=== PATIENT | female | born 1960 | race Caucasian/White ===

== ENCOUNTER 2018-01-18 17:25 | Emergency (ER) | payer BC, SELFPAY ==
--- NOTE | 2018-01-18 17:42 | HMH.EDUTC ---
[facility] [place] Clinical Impression: URI (upper respiratory infection) Qualifiers: URI type: unspecified URI Qualified Code(s): J06.9 - Acute upper respiratory infection, unspecified Disposition: Home, Self-Care Condition on Discharge: Good Instructions: DI for Cough -- Adult, DI for Fever (Symptom) -- Adult, Sore Throat Additional Instructions: * Monitor Temp. Tylenol and/or Ibuprofen as needed. ER if fever is no less than 101 despite alternating Tylenol and Ibuprofen * Encourage fluids, water, Gatorade, powerade, pedialyte if /toddler/or child * Warm salt water gargles for throat irritation *Warm fluids *Sore throat lozenges *Sleep elevated *humidifier or vaporizer Lots of rest Increase fluids, water, Gatorade, powerade *Flonase 2 sprays each nostril daily but may take 2-3 days to notice improvement with it Follow up IMMEDIATELY for new or worsening of symptoms OR no noticeable improvement over the next 48-72 hours. 911 immediately for any life threatening symptoms such as chest pain or difficulty breathing Prescriptions: Azithromycin [Z-Huy 250mg Tab] 250 mg PO UD DOSE PK #6 tab Dextromethorphan Polistirex [Delsym] 10 ml PO Q12H PRN #350 manjit.er.12h PRN Reason: Cough Fluticasone Propionate [Flonase 50mcg nasal spray 16gm] 2 spr NS DAILY #1 bottle predniSONE [Prednisone 5mg Tab Dose-Pack] 5 mg PO UD DOSE PK #21 pack Referrals: Js Palomares MD [Primary Care Provider] - Time of Disposition: 17:56 Medical Decision Making - Medical Records Medical records reviewed: Yes: I reviewed the patient's medical records. - [place] Inquiry Pt receiving controlled substance: No Torey was queried for this patient: No Vital Signs: 01/18/18 17:46 Temperature 98.2 F Temperature Source Oral Pulse Rate [Right Brachial] 89 Respiratory Rate 20 Blood Pressure [Right Arm] 132/88 Blood Pressure Mean [Right Arm] 102 Blood Pressure Source [Right Arm] Automatic Cuff Blood Pressure Position [Right Arm] Sitting 02 Sat by Pulse Oximetry 96 Oxygen Delivery Method Room Air - Lab Data Lab results reviewed: Yes: I reviewed the patient's lab results. [facility] [place] - General Stated complaint: fever, chills, cough Time Seen by Provider: 01/18/18 17:42 - History of Present Illness Provider Complaint: Patient state that she has not been feeling well for over a week now State that she has been having nasal congestion cough, fever and sore throat State that she began to feel a little better on Sat then Saturday she began not feeling well again State that she feels like she has drainage down the back of her throat State that temp has been as high as 102.0 and she took over the counter medication and it did help to bring it down - Related Data Home Medications Medication Instructions Recorded Confirmed Ascorbic Acid [Vitamin C 500mg 1,000 mg PO DAILY 01/18/18 01/18/18 tablet] Calcium Carbonate [Calcium] 500 mg PO DAILY 01/18/18 01/18/18 Cholecalciferol (Vitamin D3) 10,000 unit PO DAILY 01/18/18 01/18/18 [Vitamin D3 10,000 Unit Tab] Fluoxetine HCl [Prozac] 40 mg PO DAILY 01/18/18 01/18/18 Multivitamin [Multi-Day Vitamins] 1 each PO DAILY 01/18/18 01/18/18 Omeprazole Magnesium [Prilosec Otc 20 mg PO DAILY 01/18/18 01/18/18 20mg Tab] Previous Rx's Medication Instructions Recorded Azithromycin [Z-Huy 250mg Tab] 250 mg PO UD DOSE PK #6 tab 01/18/18 Dextromethorphan Polistirex 10 ml PO Q12H PRN #350 manjit.er.12h 01/18/18 [Delsym] Fluticasone Propionate [Flonase 2 spr NS DAILY #1 bottle 01/18/18 50mcg nasal spray 16gm] predniSONE [Prednisone 5mg Tab 5 mg PO UD DOSE PK #21 pack 01/18/18 Dose-Pack] Allergies Allergy/AdvReac Type Severity Reaction Status Date / Time No Known Allergies Allergy Unverified 10/15/17 14:08 [facility] History I have reviewed the patient's past medical history: Yes ROS Obtained: Yes All systems reviewed & no additional complaints - Constitutional Constitutional: Repo
[2018-01-18 17:46] VITALS: BP 132/88; PULSE 89; RESP 20; TEMP 36.8; O2SAT 96; BMI 35.2
[2018-01-18 18:09] LABS: UTC Influenza A Antigen Negative (Negative); UTC Influenza B Antigen Negative (Negative)
[2018-01-18 18:24] VITALS: BP 130/78; PULSE 80; RESP 20; TEMP 36.8; O2SAT 96
== END 2018-01-18 18:25 | disposition home or self-care (01) ==
PROVIDERS: Emergency Provider Nurse Practitioner; Family Provider Family Medicine; PCP Family Medicine
DX: J06.9 Acute upper respiratory infection, unspecified (principal)
CPT/HCPCS: 87804; 99202

== ENCOUNTER → 2018-03-31 10:13 | Outpatient (CLI) | payer BC, SELFPAY ==
--- NOTE | 2018-03-31 10:15 | MM_ITS ---
MM Dig screening mamm BI w/CAD CAD Screening ORDERING PHYSICIAN : Js Palomares MD PATIENT AGE: 57 years GENDER: Female Routine screening no hormones no new complaints. Family history. Paternal aunt breast cancer in her 80s COMPARISON: Previous bilateral mammograms: February 2017, August 2015, July 17 TECHNIQUE: Standard CC and MLO images were obtained. R2 CAD reviewed. FINDINGS: Low-density breasts. No dominant mass nor suspicious calcifications in either breast. . No significant change since prior studies.. CAD computer review highlights no areas of concern either. RIGHT BREAST:No significant new findings. Follow up one year. LEFT BREAST:Small intramammary node at the margin of the MLO view is been present since 2013. Unchanged IMPRESSION: Stable bilateral mammogram. No new areas of concern. Follow-up one year recommended BI-RADS Category: 1 Negative RECOMMENDED FOLLOW-UP: 1YR - 1 YEAR FOLLOW-UP (A letter has been sent to the patient regarding results of the study.)
== END ==
PROVIDERS: Family Provider Family Medicine; PCP Family Medicine; Visit Provider Family Medicine
DX: Z12.31 Encounter for screening mammogram for malignant neoplasm of breast (principal)
CPT/HCPCS: 77067

== ENCOUNTER → 2018-12-24 07:48 | Outpatient (CLI) | payer BC, SELFPAY ==
--- NOTE | 2018-12-24 07:55 | US_ITS ---
US transvaginal HISTORY: Left lower quadrant pelvic pain ITS.REASON: PELVIC PAIN ORDERING PHYSICIAN: Js Palomares MD PATIENT AGE: 58 years Comparison: None FINDINGS: The uterus is 5 x 3 x 3.5 cm with a 5 mm combined endometrial thickness. No uterine mass is evident. Left ovary is 14 x 13 mm. Right ovary is 13 x 10 mm. There is a small amount fluid in the cul-de-sac. IMPRESSION: Small amount of cul-de-sac fluid otherwise negative pelvic ultrasound
== END ==
PROVIDERS: PCP Family Medicine; Visit Provider Family Medicine
DX: R10.2 Pelvic and perineal pain (principal)
CPT/HCPCS: 76830

== ENCOUNTER → 2019-05-05 08:05 | Outpatient (CLI) | payer BC, SELFPAY ==
--- NOTE | 2019-05-05 08:30 | MM_ITS ---
MM Dig screening mamm BI w/CAD CAD Screening COMPARISON: Digital mammograms with CAD 03/31/2018 and 03/01/2017 INDICATION: There is a history of breast cancer patient paternal aunt diagnosed in her 80s TECHNIQUE: Standard CC and MLO images were obtained. R2 CAD reviewed. FINDINGS: The breasts are composed primarily of fat with minimal scattered fiber glandular densities in each breast. There is a benign-appearing calcification just deep to the nipple the left breast. There is a stable tiny nodular density low in the axilla left breast likely a low-lying noted. There is no suspicious lesion and there are no suspicious microcalcifications. IMPRESSION: Fatty type breast parenchyma with no suspicious lesion seen BI-RADS Category: 2 Benign Finding(s) RECOMMENDED FOLLOW-UP: 1YR - 1 YEAR FOLLOW-UP (A letter has been sent to the patient regarding results of the study.)
== END ==
PROVIDERS: PCP Family Medicine; Visit Provider Family Medicine
DX: Z12.31 Encounter for screening mammogram for malignant neoplasm of breast (principal)
CPT/HCPCS: 77067

== ENCOUNTER → 2019-07-28 07:47 | Outpatient (CLI) | payer BC, SELFPAY ==
[2019-07-28 09:00] LABS: Anion Gap 9.2 mEq/L (5-15); Blood Urea Nitrogen 16 mg/dL (7-18); Carbon Dioxide 31 mmol/L (21.0-32.0); Chloride 106 mmol/L (98-107); Creatinine,Serum 0.66 mg/dL (0.55-1.02); Estimated Glomerular Filt Rate 92 ml/min (>60); GFR (African American) 111 ML/MIN (>60); Glucose 87 mg/dL (74-106); Potassium 4.2 mmoL/L (3.5-5.1); Sodium 142 mmol/L (136-145)
== END ==
PROVIDERS: Visit Provider Specialist
DX: Z01.818 Encounter for other preprocedural examination (principal)
CPT/HCPCS: 36415; 80048

== ENCOUNTER → 2020-05-20 10:57 | Outpatient (CLI) | payer BC, SELFPAY ==
--- NOTE | 2020-05-20 11:00 | MM_ITS ---
PROCEDURE: MM DIG SCREENING MAMM BI W/CAD DIGITAL BREAST TOMOSYNTHESIS INCLUDED Patient Age:59Y CLINICAL INDICATION: Routine screening mammogram. 59-year-old. No hormones. No new complaints;. Family history paternal aunt with breast cancer in her 80s COMPARISON: DIGITAL MAMMOGRAPHY SCREENING from 07/20/2009 DIGITAL MAMMOGRAPHY SCREENING from 12/14/2010 DIGITAL MAMMOGRAPHY SCREENING from 07/12/2014 [employer] LEFT UNILATERAL MAMMOGRAM from 07/21/2014 [facility] DIG MAMM-SCREEN RICARDO from 09/09/2015 [facility] DIG MAMM-SCREEN [facility]ARDO W/CAD from 03/01/2017 [facility] MM Dig screening mamm BI w/CAD from 03/31/2018 DIG MAMM-SCREEN RICARDO from 05/05/2019 TECHNIQUE: Standard CC and MLO images were obtained. R2 CAD reviewed. Bilateral digital breast tomosynthesis included. FINDINGS: Low-density breast with diffuse fatty replacement. CAD computer assisted review highlights no areas of concern. On visual inspection no new dominant or suspicious mass. No suspicious calcifications. No architectural distortion Left breast: No new areas of concern. Subtle scattered stable areas of density likely reflect fibroglandular tissue with no significant change since previous studies. Right breast: Stable appearance with no new areas of concern. Again a few tiny scattered areas of density noted but stable since previous studies. IMPRESSION: Stable with no new areas of concern either breast. Bilateral follow-up 1 year recommended BI-RAD Category: 2 Benign Finding(s) FOLLOW-UP: 1YR 1 Year Follow-up (A letter has been sent to the patient regarding results of the study.) Dictated by: Jordan Mcneill MD 05/24/2020 09:39 Electronically signed by Jordan Mcneill MD in [place] 05/24/2020 09:39
== END ==
PROVIDERS: PCP Family Medicine; Visit Provider Family Medicine
DX: Z12.31 Encounter for screening mammogram for malignant neoplasm of breast (principal)
CPT/HCPCS: 77063; 77067

== ENCOUNTER → 2021-05-04 08:13 | Outpatient (CLI) | payer OTHER, SELFPAY ==
--- NOTE | 2021-05-04 08:16 | US_ITS ---
PROCEDURE: US ABDOMEN LIMITED CLINICAL INDICATION: RUQ PAIN COMPARISON: No exams were available for comparison FINDINGS: PANCREAS: Pancreas is not well delineated due to overlying bowel gas. CT or MRI without and with contrast with pancreatic protocol may provide further evaluation if clinically desired. LIVER: No focal liver lesions demonstrated. Homogeneous echogenicity. No intrahepatic biliary ductal dilatation evident. There is appropriate direction of blood flow within a non dilated portal vein RIGHT KIDNEY: Unremarkable. Normal size and echogenicity. No hydronephrosis GALLBLADDER: No gallstones, gallbladder wall thickening, pericholecystic fluid, or biliary dilatation. IMPRESSION: Poor visualization of the pancreas otherwise negative right upper quadrant ultrasound Dictated by: Arnoldo Christianson MD 05/04/2021 12:28 Arnoldo Christianson MD in [place] 05/04/2021 12:28
== END ==
PROVIDERS: PCP Family Medicine; Visit Provider Family Medicine
DX: R10.11 Right upper quadrant pain (principal)
CPT/HCPCS: 76705

== ENCOUNTER → 2021-05-19 06:45 | Outpatient (CLI) | payer OTHER, SELFPAY ==
--- NOTE | 2021-05-19 06:52 | NM_ITS ---
PROCEDURE: NM HEPATOBILIARY W PHARM CLINICAL INDICATION: RUQ PAIN COMPARISON: No exams were available for comparison TECHNIQUE: DOSE: 4.98 mCi TC Choletec FINDINGS: Homogeneous activity is present within the hepatic parenchyma. Activity is present in the gallbladder by 35 minutes. Activity is present in the small bowel by 30 minutes. The gallbladder ejection fraction is calculated to be 96 percent. CCK-The patient did not report pain or other symptoms during CCK infusion. IMPRESSION: Unremarkable HIDA scan. Dictated by: Raegan Marrufo 05/19/2021 09:59 Raegan Marrufo in [place] 05/19/2021 09:59
== END ==
PROVIDERS: PCP Family Medicine; Visit Provider Family Medicine
DX: R10.11 Right upper quadrant pain (principal)
CPT/HCPCS: 78227; A9537

== ENCOUNTER → 2021-06-06 13:46 | Outpatient (CLI) | payer OTHER, SELFPAY ==
--- NOTE | 2021-06-06 13:49 | US_ITS ---
PROCEDURE: MM DIG MAMM BI DX W/CAD Digital Breast Tomosynthesis Included CLINICAL INDICATION: NEOPLASM OF UNCERTAIN BEHAVIOR OF LT BREAST Left breast nodule. History bilateral breast reduction COMPARISON: MG [facility] MM Dig screening mamm BI w/CAD from 03/31/2018 MG DIG MAMM-SCREEN RICARDO from 05/05/2019 MG MM DIG SCREENING MAMM BI W/CAD from 05/20/2020 US US BREAST RT COMPLETE from 06/06/2021 US US BREAST LT COMPLETE from 06/06/2021 TECHNIQUE: Standard CC and MLO images and 3D Tomosynthesis was obtained. R2 CAD reviewed. FINDINGS: Average fibroglandular tissue. Status post bilateral breast reduction. Right breast: Asymmetric density is present in the lower outer and central aspect of the right breast. A 3 mm nodular density is present in the central aspect of the right breast central 1/3. No malignant appearing microcalcifications. Right breast ultrasound: At 7 o'clock there is a mixed subcutaneous 8 mm nodule which hyperechoic with the isoechoic center and could be due to scarring/hematoma. Left breast: There is an area of asymmetric density in the lower outer aspect of the left breast. This shows some intermixed fat density and may be related to postsurgical changes. This corresponds to the patient's palpable abnormality. This area measures 15 x 7 mm.. There is also some architectural distortion in the central aspect of the left breast slightly lateral which may be due to postsurgical change. Left breast ultrasound: In the 4 o'clock region of the left breast there is a 1.2 x 0.8 x0.7 cm similar to the lesion on the right side with slight increased echogenicity peripherally and decreased echogenicity centrally and may be related to a scarring//hematoma. This corresponds to the palpable abnormality. There is some posterior acoustical shadowing IMPRESSION: Status post bilateral breast reduction with bilateral asymmetric densities consistent with postsurgical changes. Recommend six-month mammographic and sonographic follow-up to confirm stability. 3 mm nodule central right breast probably benign. BI-RAD Category: 3 Probably Benign Finding Short Term Follow-Up FOLLOW-UP: 6M 6 Month Follow-up (A letter has been sent to the patient regarding results of the study.) Dictated by: Arnoldo Christianson MD 06/13/2021 12:38 Arnoldo Christianson MD in [place] 06/13/2021 12:38
== END ==
PROVIDERS: PCP Family Medicine; Visit Provider Nurse Practitioner
DX: D48.62 Neoplasm of uncertain behavior of left breast (principal)
CPT/HCPCS: 76641; 77062; 77066; G0279

== ENCOUNTER → 2021-12-12 13:46 | Outpatient (CLI) | payer OTHER, SELFPAY ==
--- NOTE | 2021-12-12 | US_ITS ---
PROCEDURE INFORMATION: Exam: US Right Breast, Complete US Left Breast, Complete MG Bilateral Diagnostic Breast Tomosynthesis Exam date and time: 12/12/2021 2:00 PM Age: 61 years old Clinical indication: 6 month follow up 3 mm right central breast mass as well as asymmetry in the left breast seen on prior ultrasound TECHNIQUE: Imaging protocol: Complete ultrasound of all four quadrants of the Right breast and the retroareolar regions, including ultrasound of the axilla when performed. Complete ultrasound of all four quadrants of the Left breast and the retroareolar regions, including ultrasound of the axilla when performed. Bilateral Diagnostic tomosynthesis and 2D mammography including computer-aided detection (CAD) when performed. Unilateral or bilateral exam. COMPARISON: 1. MG MM DIG MAMM BI DX W/CAD 06/06/2021 1:55 PM 2. MG MM DIG SCREENING MAMM BI W/CAD 05/20/2020 11:02 AM FINDINGS: MAMMOGRAPHY: The breast tissue is composed of scattered areas of fibroglandular density. There is no stellate mass, architectural distortion or suspicious microcalcifications in either breast to suggest malignancy. Stable 0.3 cm mass in the middle third the right central breast only well seen in the craniocaudal projection. No skin thickening or axillary adenopathy. ULTRASOUND: Sonographic images of both breasts including the retroareolar regions, all 4 quadrants and the axilla do not demonstrate any solid masses. Minimal subcentimeter cystic change is present in the right 6 o'clock axis. Cursors were placed over normal fibroglandular structures in the right 7 o'clock axis 3 cm from the nipple. Sonographic images of the left 4 o'clock axis 8 cm from the nipple demonstrates a subcutaneous mixed echotexture somewhat border forming mass measuring 0.8 x 0.5 x 0.6 cm in dimension. The finding is most consistent with postoperative fat necrosis and is unchanged compared to prior ultrasound. No architectural distortion or acoustical shadowing. No skin thickening or axillary adenopathy. IMPRESSION: Stable central 0.3 cm mass compared to prior mammogram dated 06/06/2021. A six-month follow-up diagnostic right mammogram is recommended for continued close surveillance unless otherwise clinically indicated. ASSESSMENT: BI-RADS Category 3: Probably benign
== END ==
PROVIDERS: PCP Family Medicine; Visit Provider Family Medicine
DX: R92.8 Other abnormal and inconclusive findings on diagnostic imaging of breast (principal)
CPT/HCPCS: 76641; 77062; 77066; G0279

== ENCOUNTER → 2022-06-13 13:41 | Outpatient (CLI) | payer OTHER, SELFPAY ==
--- NOTE | 2022-06-13 13:42 | US_ITS ---
PROCEDURE INFORMATION: Exam: US Right Breast, Complete US Left Breast, Complete MG Right Diagnostic Breast Tomosynthesis Exam date and time: 06/13/2022 3:00 PM Age: 61 years old Clinical indication: Short-term radiographic followup; Right breast; central breast mass TECHNIQUE: Imaging protocol: Complete ultrasound of all four quadrants of the Right breast and the retroareolar regions, including ultrasound of the axilla when performed. Complete ultrasound of all four quadrants of the Left breast and the retroareolar regions, including ultrasound of the axilla when performed. Right Diagnostic tomosynthesis and 2D mammography including computer-aided detection (CAD) when performed. Unilateral or bilateral exam. COMPARISON: US BREAST RT COMPLETE 12/12/2021 2:36 PM FINDINGS: MAMMOGRAPHY: The breast tissue is composed of scattered areas of fibroglandular density. There is no stellate mass, architectural distortion or suspicious microcalcifications to suggest malignancy. Stable 0.3 cm mass in the middle third of the right central to slightly inferior breast better seen in the craniocaudal projection on routine and spot compression views. No skin thickening or axillary adenopathy. ULTRASOUND: Sonographic images of the right breast including the retroareolar region, all 4 quadrants, and the axilla demonstrates a 0.3 cm cyst in the 6 o'clock axis 5 cm from the nipple. Additional 0.4 cm cyst in the right 7 o'clock axis 3 cm from the nipple . Previously noted fat necrosis in the 4 o'clock axis 8 cm from the nipple has resolved IMPRESSION: Stable 0.3 cm right central breast mass compared to prior mammograms dating back to 06/06/2021. A six-month follow-up diagnostic bilateral mammogram is recommended for continued close surveillance as well as part of an annual screening schedule. ASSESSMENT: BI-RADS Category 3: Probably benign
== END ==
PROVIDERS: PCP Family Medicine; Visit Provider Nurse Practitioner
DX: R92.8 Other abnormal and inconclusive findings on diagnostic imaging of breast (principal)
CPT/HCPCS: 76641; 77061; 77065; G0279

== ENCOUNTER → 2022-10-25 08:07 | Outpatient (CLI) | payer OTHER, SELFPAY ==
[2022-10-25 09:02] LABS: Basophils # 0.1 K/mm3 (0-0.2); Basophils % 1.7 % (0.1-2.0); Eosinophils # 0.1 K/mm3 (0.0-0.4); Eosinophils % 2.4 % (0.1-12.0); Hematocrit 41.9 % (37.0-47.0); Hemoglobin 13.4 g/dL (12.2-16.2); Lymphocytes # 2.9 K/mm3 (0.7-4.5); Lymphocytes % 48.3 % (10-50); Mean Corpuscular HGB Conc 31.9 g/dL (31.8-35.4); Mean Corpuscular Hemoglobin 30.3 pg (27.0-31.2); Mean Corpuscular Volume 94.8 fl (81-99); Mean Platelet Volume 7.7 fl (7.4-10.4); Monocytes # 0.3 K/mm3 (0.1-1.0); Monocytes % 4.8 % (1.7-9.3); Neutrophils # 2.6 K/mm3 (1.8-7.8); Neutrophils % 42.8 % (37.0-80.0); Platelet Count 322 K/mm3 (142-424); Red Blood Count 4.42 M/mm3 (4.20-5.40); Red Cell Distribution Width 14.4 % (11.5-17.5)
[2022-10-25 09:18] LABS: Hemoglobin A1C 5.3 % (4.0-6.0)
[2022-10-25 09:58] LABS: Chloride 103 mmol/L (98-107); Potassium 3.7 mmoL/L (3.5-5.1); Sodium 140 mmol/L (136-145)
[2022-10-25 10:00] LABS: Alanine Aminotransferase 21 U/L (12-78); Aspartate Amino Transferase 34 U/L (14-36); Blood Urea Nitrogen 13 mg/dl (7-17); Estimated Glomerular Filt Rate 85 ml/min (>60); GFR (African American) 103 ML/MIN (>60)
[2022-10-25 10:01] LABS: Albumin Level 4.5 g/dl (3.5-5.0); Albumin/Globulin Ratio 1.7 (1.1-1.8); Alkaline Phosphatase 74 U/L (38-126); Anion Gap 10.7 mEq/L (5-15); Calcium 9.2 mg/dl (8.4-10.2); Carbon Dioxide 30 mmol/L (22.0-30.0); Chol/HDL Ratio 2.3 (1-3.5); Cholesterol 194 mg/dl (140-200); Globulin 2.6 g/dL (1.3-3.2); Glucose 85 mg/dl (74-100); HDL Cholesterol 86 mg/dl (40-60); Iron 111 ug/dL (37-170); Total Protein,Serum 7.1 g/dl (6.3-8.2); Triglycerides 85 mg/dl (30-150); VLDL Cholesterol 17 mg/dL (0-40)
[2022-10-25 10:12] LABS: Direct LDL Cholesterol 71.47 mg/dL (100-129)
[2022-10-25 10:15] LABS: Total Iron Binding Capacity 408 ug/dL (265-497)
[2022-10-25 10:19] LABS: 25-OH Vitamin D, Total 36.1 ng/mL (30-100)
[2022-10-25 10:22] LABS: Free T4 (Free Thyroxine) 0.98 ng/dl (0.78-2.19)
[2022-10-25 10:32] LABS: Thyroid Stimulating Hormone 3.59 uIU/mL (0.465-4.68)
[2022-10-25 10:36] LABS: Ferritin 11.9 ng/ml (11.1-264)
[2022-10-27 19:11] LABS: Vitamin B1 208.8 nmol/L (66.5-200.0)
[2022-10-29 00:05] LABS: Vitamin A 39.7 ug/dL (22.0-69.5); Vitamin E Alpha Tocopherol 11.5 mg/L (9.0-29.0); Vitamin E Gamma Tocopherol 0.9 mg/L (0.5-4.9)
[2022-10-30 12:18] LABS: Methylmalonic Acid 128 nmol/L (0-378)
== END ==
PROVIDERS: PCP Family Medicine; Visit Provider Physician Assistant
DX: Z90.3 Acquired absence of stomach [part of] (principal)
CPT/HCPCS: 36415; 80053; 80061; 82131; 82306; 82728; 83036; 83540; 83550; 84425; 84439; 84443; 84446; 84590; 85025

== ENCOUNTER → 2022-12-17 13:42 | Outpatient (CLI) | payer OTHER, SELFPAY ==
--- NOTE | 2022-12-17 13:42 | US_ITS ---
PROCEDURE INFORMATION: Exam: US Right Breast, Complete US Left Breast, Complete MG Bilateral Diagnostic Breast Tomosynthesis Exam date and time: 12/17/2022 1:58 PM Age: 62 years old Clinical indication: Due for annual screening mammogram. Short-term follow-up has been performed of the right breast dating back to 06/06/2021 to assess stability of a 0.3 cm central right breast mass. TECHNIQUE: Imaging protocol: Complete ultrasound of all four quadrants of the right breast and the retroareolar regions, including ultrasound of the axilla when performed. Complete ultrasound of all four quadrants of the left breast and the retroareolar regions, including ultrasound of the axilla when performed. Bilateral Diagnostic tomosynthesis and 2D mammography including computer-aided detection (CAD) when performed. Unilateral or bilateral exam. COMPARISON: 1. MG MM DIG MAMM DX UNILAT RT CAD 06/13/2022 2:06 PM 2. MG MM DIG MAMM BI DX W/CAD 12/12/2021 1:59 PM 3. MG MM DIG MAMM BI DX W/CAD 06/06/2021 1:55 PM 4. MG MM DIG SCREENING MAMM BI W/CAD 05/20/2020 11:02 AM FINDINGS: MAMMOGRAPHY: There are scattered areas of fibroglandular density. Unchanged 6 o'clock right middle 1/3 0.4 cm circumscribed mass without associated architectural distortion or suspicious calcifications. This is identified on the initial postoperative images from 06/06/2021 in may be on a postoperative basis No new mass, architectural distortion, or suspicious calcifications have developed to suggest malignancy. No axillary adenopathy. ULTRASOUND: Left: Hypoechoic shadowing superficial structure along the 4 o'clock axis 8 cm from the nipple measures about 1 x 0.5 x 0.5 cm compared with 0.9 x 0.6 x 0.5 cm on 12/12/2021. This is thought to reflect fat necrosis which demonstrates characteristic features/calcifications in this location on the mammogram. No suspicious solid or cystic mass is present. No architectural distortion or shadowing is present. No axillary adenopathy is present. Right: In the region of mammographic interest, approximately 6 o'clock right breast 5 cm from the nipple, there is a anechoic 0.3 x 0.5 x 0.2 cm horizontally oriented mostly circumscribed structure with features highly suggestive of a complicated cyst. No suspicious solid or cystic mass is present. No architectural distortion or shadowing is present. No axillary adenopathy is present. IMPRESSION: Suspected postoperative 4 mm cyst in the 6 o'clock right breast. No mammographic evidence of malignancy. Recommend annual screening mammography unless otherwise clinically indicated. ASSESSMENT: BI-RADS category 2: Benign
== END ==
PROVIDERS: PCP Family Medicine; Visit Provider Nurse Practitioner
DX: R92.8 Other abnormal and inconclusive findings on diagnostic imaging of breast (principal)
CPT/HCPCS: 76641; 77062; 77066; G0279

== ENCOUNTER → 2023-01-30 23:27 | Outpatient (CLI) | payer OTHER, SELFPAY ==
[2023-01-30 18:45] LABS: Basophils % 0.8 % (0.1-2.0); Eosinophils # 0.1 K/mm3 (0.0-0.4); Hematocrit 41.9 % (37.0-47.0); Hemoglobin 13.2 g/dL (12.2-16.2); Lymphocytes # 1.9 K/mm3 (0.7-4.5); Lymphocytes % 38.9 % (10-50); Mean Corpuscular HGB Conc 31.7 g/dL (31.8-35.4); Mean Corpuscular Hemoglobin 31.1 pg (27.0-31.2); Mean Corpuscular Volume 98.3 fl (81-99); Mean Platelet Volume 8.1 fl (7.4-10.4); Monocytes # 0.3 K/mm3 (0.1-1.0); Monocytes % 6.3 % (1.7-9.3); Neutrophils # 2.5 K/mm3 (1.8-7.8); Platelet Count 369 K/mm3 (142-424); Red Blood Count 4.26 M/mm3 (4.20-5.40); Red Cell Distribution Width 13.4 % (11.5-17.5); White Blood Count 4.8 K/mm3 (4.8-10.8)
[2023-01-30 18:58] LABS: Alanine Aminotransferase 22 U/L (12-78); Albumin Level 4.3 g/dl (3.5-5.0); Albumin/Globulin Ratio 1.5 (1.1-1.8); Alkaline Phosphatase 71 U/L (38-126); Anion Gap 12.5 mEq/L (5-15); Aspartate Amino Transferase 30 U/L (14-36); Bilirubin,Total 0.7 mg/dl (0.2-1.3); Blood Urea Nitrogen 17 mg/dl (7-17); Carbon Dioxide 28 mmol/L (22.0-30.0); Chloride 104 mmol/L (98-107); Cholesterol 161 mg/dl (140-200); Estimated Glomerular Filt Rate 85 ml/min (>60); GFR (African American) 102 ML/MIN (>60); Globulin 2.8 g/dL (1.3-3.2); Glucose 75 mg/dl (74-100); HDL Cholesterol 81 mg/dl (40-60); Potassium 4.5 mmoL/L (3.5-5.1); Sodium 140 mmol/L (136-145); Total Protein,Serum 7.1 g/dl (6.3-8.2); Triglycerides 95 mg/dl (30-150); VLDL Cholesterol 19 mg/dL (0-40)
[2023-01-30 19:09] LABS: Direct LDL Cholesterol 55.42 mg/dL (100-129)
[2023-01-30 19:28] LABS: Thyroid Stimulating Hormone 1.59 uIU/mL (0.465-4.68)
== END ==
PROVIDERS: PCP Nurse Practitioner; Visit Provider Nurse Practitioner
DX: Z13.0 Encounter for screening for diseases of the blood and blood-forming organs and certain disorders involving the immune mechanism (principal); Z13.1 Encounter for screening for diabetes mellitus; Z13.220 Encounter for screening for lipoid disorders; Z13.228 Encounter for screening for other metabolic disorders; Z13.29 Encounter for screening for other suspected endocrine disorder; Z00.00 Encounter for general adult medical examination without abnormal findings
CPT/HCPCS: 80053; 80061; 83036; 84443; 85025

== ENCOUNTER → 2023-04-11 08:09 | Outpatient (CLI) | payer OTHER, SELFPAY ==
[2023-04-11 09:16] LABS: Basophils % 0.8 % (0.1-2.0); Eosinophils # 0.1 K/mm3 (0.0-0.4); Eosinophils % 2.8 % (0.1-12.0); Hematocrit 39.3 % (37.0-47.0); Hemoglobin 12.6 g/dL (12.2-16.2); Lymphocytes # 2.6 K/mm3 (0.7-4.5); Lymphocytes % 54.5 % (10-50); Mean Corpuscular HGB Conc 32.1 g/dL (31.8-35.4); Mean Corpuscular Hemoglobin 30.4 pg (27.0-31.2); Mean Corpuscular Volume 94.5 fl (81-99); Mean Platelet Volume 7.4 fl (7.4-10.4); Monocytes # 0.3 K/mm3 (0.1-1.0); Monocytes % 5.7 % (1.7-9.3); Neutrophils # 1.8 K/mm3 (1.8-7.8); Neutrophils % 36.2 % (37.0-80.0); Platelet Count 301 K/mm3 (142-424); Red Blood Count 4.16 M/mm3 (4.20-5.40); White Blood Count 4.8 K/mm3 (4.8-10.8)
[2023-04-11 09:23] LABS: MANUAL DIFFERENTIAL MANUAL DIFFERENTIAL (MANUAL DIFF)
[2023-04-11 09:45] LABS: Chloride 103 mmol/L (98-107); Potassium 4.1 mmoL/L (3.5-5.1); Sodium 140 mmol/L (136-145)
[2023-04-11 09:48] LABS: Alanine Aminotransferase 21 U/L (12-78); Albumin Level 3.7 g/dl (3.5-5.0); Albumin/Globulin Ratio 1.4 (1.1-1.8); Alkaline Phosphatase 59 U/L (38-126); Anion Gap 11.1 mEq/L (5-15); Aspartate Amino Transferase 30 U/L (14-36); Bilirubin,Total 0.9 mg/dl (0.2-1.3); Blood Urea Nitrogen 11 mg/dl (7-17); Calcium 8.7 mg/dl (8.4-10.2); Carbon Dioxide 30 mmol/L (22.0-30.0); Cholesterol 151 mg/dl (140-200); Estimated Glomerular Filt Rate 85 ml/min (>60); GFR (African American) 102 ML/MIN (>60); Globulin 2.6 g/dL (1.3-3.2); Glucose 83 mg/dl (74-100); Iron 128 ug/dL (37-170); Total Protein,Serum 6.3 g/dl (6.3-8.2); Triglycerides 138 mg/dl (30-150); VLDL Cholesterol 28 mg/dL (0-40)
[2023-04-11 09:49] LABS: Chol/HDL Ratio 2.3 (1-3.5); HDL Cholesterol 67 mg/dl (40-60)
[2023-04-11 10:05] LABS: Free T4 (Free Thyroxine) 0.85 ng/dl (0.78-2.19)
[2023-04-11 10:19] LABS: Thyroid Stimulating Hormone 1.71 uIU/mL (0.465-4.68)
[2023-04-11 10:23] LABS: Ferritin 14.1 ng/ml (11.1-264)
[2023-04-11 11:20] LABS: 25-OH Vitamin D, Total 32.9 ng/mL (30-100)
[2023-04-11 12:45] LABS: Hemoglobin A1C 5.1 % (4.0-6.0)
[2023-04-11 14:06] LABS: Total Iron Binding Capacity 328 ug/dL (265-497)
[2023-04-11 14:07] LABS: Direct LDL Cholesterol 59.39 mg/dL (100-129)
[2023-04-11 14:39] LABS: Eosinophils % 1 % (0-3); Lymphocytes % 58 % (10-50); Monocytes % 5 % (2-9); Neutrophils % 36 % (42-76); Platelet Estimate Normal; RBC Morphology Normal; Total Cells Counted 100
[2023-04-12 16:13] LABS: Prealbumin 21 mg/dL (10-36)
[2023-04-15 07:11] LABS: Vitamin A 32.1 ug/dL (22.0-69.5); Vitamin E Alpha Tocopherol 9.1 mg/L (9.0-29.0); Vitamin E Gamma Tocopherol 0.7 mg/L (0.5-4.9)
[2023-04-15 21:08] LABS: Vitamin B1 153.9 nmol/L (66.5-200.0)
[2023-04-16 12:10] LABS: Selenium 201 ug/L (100-340)
[2023-04-18 10:27] LABS: Methylmalonic Acid 119 nmol/L (0-378)
== END ==
PROVIDERS: PCP Family Medicine; Visit Provider Physician Assistant
DX: Z90.3 Acquired absence of stomach [part of] (principal)
CPT/HCPCS: 36415; 80053; 80061; 82306; 82525; 82728; 82746; 83036; 83540; 83550; 83921; 84134; 84255; 84425; 84439; 84443; 84446; 84590; 84630; 85007; 85025

== ENCOUNTER → 2023-08-29 08:43 | Outpatient (CLI) | payer OTHER, SELFPAY ==
--- NOTE | 2023-08-29 08:43 | US_ITS ---
PROCEDURE: US TRANSVAGINAL CLINICAL INDICATION: post menopausal bleeding COMPARISON: No exams were available for comparison FINDINGS: Transvaginal sonographic images of the pelvis were obtained. UTERUS: 4.6 cm x 3.5 cm x 2.7 cm with a combined endometrial thickness of 5.6mm. Uterus is retroverted . There is a small amount of fluid within the endometrial cavity. LEFT OVARY: Is not visualized RIGHT OVARY: Is not visualized Ovaries are not visualized. There is fluid in the cul-de-sac. The fluid measures 1.1 cm x 1.5 cm x 1.8 cm. IMPRESSION: 1. Small retroverted uterus. There is a small amount of fluid within the endometrium. 2. Ovaries could not be visualized. 3. Fluid is present in the cul-de-sac. Dictated by: Tad Jordan MD 08/29/2023 14:10 Tad Jordan MD in [place] 08/29/2023 14:10
== END ==
PROVIDERS: PCP Nurse Practitioner; Visit Provider Obstetrics & Gynecology
DX: N95.0 Postmenopausal bleeding (principal)
CPT/HCPCS: 76830

== ENCOUNTER → 2023-09-03 09:22 | Outpatient (CLI) | payer OTHER, SELFPAY ==
[2023-09-03 09:57] LABS: Basophils # 0.1 K/mm3 (0-0.2); Eosinophils # 0.1 K/mm3 (0.0-0.4); Eosinophils % 1.3 % (0.1-12.0); Hematocrit 41.5 % (37.0-47.0); Lymphocytes # 2.7 K/mm3 (0.7-4.5); Lymphocytes % 48.3 % (10-50); Mean Corpuscular HGB Conc 33.8 g/dL (31.8-35.4); Mean Corpuscular Hemoglobin 32.8 pg (27.0-31.2); Mean Corpuscular Volume 97.2 fl (81-99); Mean Platelet Volume 7.3 fl (7.4-10.4); Monocytes # 0.3 K/mm3 (0.1-1.0); Monocytes % 6.1 % (1.7-9.3); Neutrophils # 2.4 K/mm3 (1.8-7.8); Neutrophils % 43.3 % (37.0-80.0); Platelet Count 312 K/mm3 (142-424); Red Blood Count 4.27 M/mm3 (4.20-5.40); Red Cell Distribution Width 13.5 % (11.5-17.5); White Blood Count 5.5 K/mm3 (4.8-10.8)
== END ==
PROVIDERS: PCP Nurse Practitioner; Visit Provider Obstetrics & Gynecology
DX: N95.0 Postmenopausal bleeding (principal)
CPT/HCPCS: 36415; 85025

== ENCOUNTER 2023-09-05 09:32 | Day surgery (SDC) | payer OTHER, SELFPAY ==
[2023-09-04 10:13] VITALS: BMI 30.9
[2023-09-05] VITALS (11 sets, daily range): BP systolic 122–154; BP diastolic 7–90; PULSE 64–93; RESP 14–18; TEMP 36.1–36.6; O2SAT 96–100
--- NOTE | 2023-09-05 10:11 | EXP.ANES.CKL ---
[facility] Disclaimer: The information contained in this section may have been updated after the patient was seen, as this information can be updated by other users. Medical History Postmenopausal bleeding Surgical History H/O abdominoplasty H/O gastric bypass H/O gastric sleeve Hx of bilateral breast reduction surgery Family History Mother Cancer cervical Social History (Updated 09/05/23 @ 10:11 by Evelia Morales RN) Smoking Status: Never smoker alcohol intake: never substance use type: denies use current occupational status: employed Travel in the last 8 weeks: None household members: spouse housing: house marital status: [facility] Anesthesia Checklist Patient Identification Patient Identification: Arm Band and Verbal (Name & ) Structural Data Admitted From: Home Planned Operative Procedure/s: Hysteroscopy; D&C; Novasure Consent for Planned Operative Procedure(s) Verified: Yes Verified Documents: Surgical Consent and History and Physical NPO Status Verified Time NPO: 23:00 Chart Verification Results Verified: CBC, BMP and HCG Additional verifications Patient : No Anesthesia Reactions: No Hx Blood Transfusions: Yes Blood Transfusion Reaction: No Cephalosporin Allergy: No Cardiovascular Assessment Heart Sounds: S1 & S2 Pulse Rhythm: Irregular Peripheral Edema: No Airway Assessment Mallampati Score:: Class II C-Spine Mobility Assessed: Yes TMJ Mobility Assessed: Yes Dentition: Good Dentition (+ Invisalign markers on teeth. Nothing loose per pt.) Neurological Assessment Level of Consciousness: Awake, Alert, Appropriate and Follows Commands Hx Seizures: No Numbness or tingling in extremities: No Anesthesia Plan Anesthesia Risk discussed: Yes Anesthesia Plan: Verified ASA Class: II Anesthesia Type: General
[2023-09-05 10:17] LABS: Alanine Aminotransferase 29 U/L (12-78); Albumin Level 4.2 g/dl (3.5-5.0); Albumin/Globulin Ratio 1.4 (1.1-1.8); Alkaline Phosphatase 55 U/L (38-126); Anion Gap 9.3 mEq/L (5-15); Aspartate Amino Transferase 45 U/L (14-36); Bilirubin,Total 1.2 mg/dl (0.2-1.3); Blood Urea Nitrogen 12 mg/dl (7-17); Calcium 9.2 mg/dl (8.4-10.2); Carbon Dioxide 29 mmol/L (22.0-30.0); Chloride 105 mmol/L (98-107); Creatinine Clearance Estimated 74 mL/min (50-200); Estimated Glomerular Filt Rate 85 ml/min (>60); GFR (African American) 102 ML/MIN (>60); Globulin 3.1 g/dL (1.3-3.2); Glucose 93 mg/dl (74-100); Potassium 4.3 mmoL/L (3.5-5.1); Sodium 139 mmol/L (136-145); Total Protein,Serum 7.3 g/dl (6.3-8.2)
[2023-09-05 10:39] LABS: Urine Pregnancy, HCG Qual. Negative (Negative)
--- NOTE | 2023-09-05 12:24 | P.PNANES_ITS ---
[facility] Anesthesia Record Part I Anesthesia Record I Intake, IV Amount: 700 Hydration: Adequate Estimated blood loss (mL): 5 Urine output (mL): 0 Blood Products used (#): none Blood Pressure: 122/69 SaO2: 99 Pulse Rate: 64 Airway Patency: Patent Respiratory Rate: 14 Temperature: 97 F Patient is:: Drowsy and Stable Stable to PACU at:: 12:10
--- NOTE | 2023-09-05 12:45 | P.OP_ITS ---
Date of procedure: 09/05/23 Pre-op Diagnosis:: 1. Postmenopausal bleeding Post-op Diagnosis:: 1. Postmenopausal bleeding Procedure performed:: Hysteroscopy, dilation, and curettage Surgeon:: Shena Tripathi DO AUTO PAINTER HELPER:: Haresh Burgos Anesthesia: GETA Estimated blood loss (mL): 10 Operative findings:: Findings: -EUA revealed an 6-week anteverted uterus with regular contour. Narrowed vaginal introidus. no significant prolapse or support defects noted. -Hysteroscopy revealed atrophic endometrium without any polyps or masses. Operative note:: The patient was taken back to the OR where general anesthesia was obtained.? She was placed in the dorsal lithotomy position using yellow fin stirrups and sterilely prepped and draped in the usual fashion.? An in and out catheter was used to drain her bladder.? A timeout was performed.? A weighted speculum was used to visualize this cervix, a single-tooth tenaculum was applied to the anterior lip of the cervix. The cervix was only slightly dilated to allow entry to the ectocervix and hydrodisection was used to get the scope the rest of the way into the cavity. The hysterscope was inserted and thin endometrium was noted. Images were obtained of the cavity. A #2 sharp curette was introduced through the cervical os and gently advanced to the fundus.? The endometrial cavity was sharply curetted 360 degrees.? Endometrial curettings were collected on a Telfa pad, passed off the operative field and sent to pathology for further evaluation.? The single-tooth tenaculum was removed and hemostasis was noted at the tenaculum sites.? All instruments were removed from the vagina.? All counts were correct, per nursing.? This concluded the procedure, the patient was awakened from anesthesia, and transferred to the PACU in stable condition. Condition: stable Disposition: PACU Specimens:: Endometrial curettings ([facility]) Complications:: None
--- NOTE | 2023-09-05 12:53 | SUR.PHASEII ---
clinic pharmacy notified of pt being in post op at this time. also, refaxed pt meds to beds form.
--- NOTE | 2023-09-05 13:08 | EXP.ANES.II ---
[facility] Anesthesia Record Part II Anesthesia Record Part II Discharge Time: 12:37 Destination: Surgical Day Care (OP Surgery) PACU nurse assessment reviewed?: Yes Patient Condition:: Good Anesthesia Complications:: None Swallowing reflex intact?: Yes Airway Patency: Patent Cyanosis?: No Blood Pressure: 141/86 SaO2: 98 Respiratory Rate: 16 Pulse Rate: 70 Temperature: 97.5 F Mental Status: Alert & Oriented Pain level:: 0 Nausea and/or vomitting:: None Intake, IV Amount: 0 Hydration: Adequate
== END 2023-09-05 13:47 | disposition home or self-care (01) ==
PROVIDERS: PCP Nurse Practitioner; Visit Provider Obstetrics & Gynecology
PROC: (CPT 58558; principal; 2023-09-05 11:15)
DX: N95.0 Postmenopausal bleeding (principal); N85.8 Other specified noninflammatory disorders of uterus
CPT/HCPCS: 58558; 80053; 81025; J2405

== ENCOUNTER 2023-10-29 08:52 | Outpatient (POV) | payer OTHER, SELFPAY | END 2023-10-29 23:59 | disposition home or self-care (01) | LOC: SC 08:52 | PROVIDERS: PCP Nurse Practitioner; Visit Provider Dermatology | DX: Z00.00 Encounter for general adult medical examination without abnormal findings (principal) ==

== ENCOUNTER 2023-11-19 21:33 | Emergency (ER) | payer OTHER, SELFPAY ==
[2023-11-19] VITALS (8 sets, daily range): BP systolic 134–164; BP diastolic 70–94; PULSE 63–82; RESP 14–19; TEMP 36.5–36.6; O2SAT 98–100; BMI 30.7
[2023-11-19 22:10] LABS: Microscopic, Urine URINE MICROSCOPIC (MICROSCOPIC)
[2023-11-19 22:14] LABS: Appearance,Urine CLEAR (Clear); Bilirubin,Urine Negative (Negative); Blood, Urine TRACE-I (Negative); Color,Urine YELLOW (Yellow); Glucose,Urine (UA) Negative (Negative); Ketones,Urine 1+ (Negative); Leukocyte Esterase,Urine 2+ (Negative); Nitrate,Urine Negative (Negative); Protein,Urine Negative (Negative); Urobilinogen,Urine 0.2 EU/dl (0.2)
--- NOTE | 2023-11-19 22:14 | ED_ITS ---
Discharge Plan Disposition Patient Disposition: Home, Self-Care Prescriptions Prescriptions: New ondansetron 4 mg tablet,disintegrating 4 mg PO Q6H PRN (Reason: nausea and vomiting) Qty: 10 0RF cefdinir 300 mg capsule 300 mg PO BID 7 Days Qty: 14 0RF No Action acetaminophen-codeine 300-30 mg tablet 1 tab PO TID PRN (Reason: pain) Qty: 30 2RF Linzess 290 mcg capsule 290 mcg PO DAILY dexlansoprazole [Dexilant] 30 mg capsule,biphase delayed releas 30 mg PO DAILY trazodone 50 mg tablet See Rx Instructions .ROUTE .COMPLEX Qty: 60 2RF Dose Instruction: TAKE 1 TO 2 TABLETS BY MOUTH AT BEDTIME NIGHTLY NEEDED FOR SLEEP Rx Instructions: TAKE 1 TO 2 TABLETS BY MOUTH AT BEDTIME NIGHTLY NEEDED FOR SLEEP multivitamin [Multi-Day] 1 EACH tablet 1 ea PO DAILY calcium carbonate 500 MG tablet 500 mg PO DAILY ascorbic acid (vitamin C) [Vitamin C] 500 MG tablet 1,000 mg PO DAILY cholecalciferol (vitamin D3) 10,000 UNIT tablet 10,000 unit PO DAILY acetaminophen 500 mg tablet 500 mg PO Q6H PRN (Reason: fever) Qty: 30 3RF Referrals Follow up/Referrals: Rosalva Nieves APRN [Primary Care Provider] - See instructions Activity Restrictions/Add. Instructions Additional Instructions/Restrictions: Call your family doctor to establish care for this visit to the emergency department and schedule follow-up within 48 hours to ensure improvement. If you have any worsening of your condition or any other concerning signs or symptoms, return to the emergency department or your primary care doctor for further evaluation. Talk to your family doctor about formal evaluation for cholecystectomy Clinical Impressions Clinical Impression: UTI (urinary tract infection) Qualifiers: Hematuria presence: with hematuria Instructions Patient Instructions: DI for Acute Abdominal Pain Discharge ED Provider: Rodrick Avendaño General Adult HPI General Chief complaint: Abdominal Pain Stated complaint: nausea, vomiting, RT side pain Time Seen by Provider: 11/19/23 21:38 Mode of Arrival: Ambulatory Source of Information: Patient and Spouse Limitations: No Limitations Description of Symptoms (Recalled from ER Triage Doc. by RN): pt states while at work last night she started having RUQ pain. pt states when she woke up today sh e was still having RUQ pain, as well as, N/V and umbilical pain. 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 Patient states that she started having right upper quadrant abdominal pain 1 hour prior to arrival in 11/18. Started getting worse today after she woke up, but had not had anything to eat. Right upper quadrant/right ribs, radiates toward her back. Associated with nausea without vomiting initially, but progressed to vomiting and p.o. intake. Patient has not had diarrhea or constipation. No fevers or chills. No overlying skin changes. Related Data Home Medications Medication Instructions Recorded Confirmed ascorbic acid (vitamin C) 500 mg 1,000 mg PO DAILY Supplement 01/18/18 09/05/23 tablet (Vitamin C) calcium carbonate 500 mg calcium 500 mg PO DAILY Supplement 01/18/18 09/17/23 (1,250 mg) tablet cholecalciferol (vitamin D3) 250 10,000 unit PO DAILY Supplement 01/18/18 09/17/23 mcg (10,000 unit) tablet multivitamin (Multi-Day tablet) 1 ea PO DAILY Supplement 01/18/18 09/17/23 linaclotide 290 mcg capsule 290 mcg PO DAILY 08/28/23 09/05/23 (Linzess) dexlansoprazole 30 mg 30 mg PO DAILY 09/03/23 09/17/23 capsule,biphase delayed release (Dexilant) Previous Rx's Medication Instructions Recorded acetaminophen 300 mg-codeine 30 mg 1 tab PO TID PRN pain #30 tabs 07/26/23 tablet acetaminophen 500 mg tablet 500 mg PO Q6H PRN fever #30 tabs 09/05/23 trazodone 50 mg tablet See Rx Instructions .Route 10/29/23 .COMPLEX #60 tabs cefdinir 300 mg capsule 300 mg PO BID 7 days #14 caps 11/19/23 ondansetron 4 mg disintegrating 4 mg PO Q6H PRN nausea and 11/19/23 tablet vomiting #10 tabs Allergies Allergy/AdvReac Type Severity Reaction Status Date / Time No Known Allergies Allergy Verified 11/19/23 22:03 [facility] Disclaimer: The information contained in this section may have been updated after the patient was seen, as this information can be updated by other users. Medical History Postmenopausal bleeding Surgical History H/O abdominoplasty H/O gastric bypass H/O gastric sleeve History of D&C History of hysteroscopy Hx of bilateral breast reduction surgery Family History Mother Cancer cervical Social History Smoking Status: Never smoker alcohol intake: never substance use type: denies use current occupational status: employed Travel in the last 8 weeks: None household members: spouse housing: house marital status: ROS Obtained: Yes All systems reviewed & no additional complaints except as documented Physical Exam General General appearance: alert and in no apparent distress Head Head exam: atraumatic and normocephalic Eye Eye exam: Present normal appearance, PERRL and EOMI ENT ENT exam: Present mucous membranes moist Neck Neck exam: Present normal inspection, full ROM and trachea midline Respiratory Respiratory exam: Present normal lung sounds bilaterally; Absent respiratory distress, wheezes, stridor, accessory muscle use or prolonged expiratory phase Cardiovascular Cardiovascular exam: Present regular rate and normal rhythm Abdominal Exam Abdominal exam: Present soft and tenderness; Absent distention, guarding, rebound, rigidity or Chan's sign Abdominal tenderness: Present RUQ (mostly overlying right ribs) Extremities Exam Extremities exam: Absent edema Neurological Exam Neurological exam: Present alert, oriented X3, CN II-XII intact and normal gait; Absent motor sensory deficit Skin Skin exam: Present warm and dry; Absent diaphoresis or erythema Medical Decision Making Medical Records Medical records reviewed: Yes I reviewed the patient's medical records. [place] Inquiry Pt receiving controlled substance: No [place] was queried for this patient: No Vital Signs: 11/19/23 21:47 11/19/23 21:41 11/19/23 22:01 Temperature 97.7 F Temperature Source Oral Pulse Rate 75 70 Pulse Rate [Left] 76 Respiratory Rate 14 18 17 Blood Pressure 160/94 H 164/78 H Blood Pressure [Right Arm] 160/94 H Blood Pressure Mean 116 114 Blood Pressure Mean [Right Arm] 116 Blood Pressure Source [Right Arm] Automatic Cuff Blood Pressure Position [Right Arm] Sitting 02 Sat by Pulse Oximetry 98 100 100 Oxygen Delivery Method Room Air 11/19/23 22:17 11/19/23 22:20 11/19/23 22:40 Temperature Temperature Source Pulse Rate 63 65 Pulse Rate [Left] Respiratory Rate 19 18 17 Blood Pressure 134/72 147/79 H 136/70 Blood Pressure [Right Arm] Blood Pressure Mean 96 98 97 Blood Pressure Mean [Right Arm] Blood Pressure Source [Right Arm] Blood Pressure Position [Right Arm] 02 Sat by Pulse Oximetry 100 100 100 Oxygen Delivery Method 11/19/23 23:00 Temperature Temperature Source Pulse Rate 70 Pulse Rate [Left] Respiratory Rate 16 Blood Pressure 135/79 Blood Pressure [Right Arm] Blood Pressure Mean 89 Blood Pressure Mean [Right Arm] Blood Pressure Source [Right Arm] Blood Pressure Position [Right Arm] 02 Sat by Pulse Oximetry 100 Oxygen Delivery Method Lab Data Lab Results 11/19/23 21:44: Urine Color Yellow, Urine Appearance Clear, Urine pH 6.0, Ur Specific [place] 1.020, Urine Protein Negative, Urine Glucose (UA) Negative, Urine Ketones 1+, Urine Blood Trace-i, Urine Nitrate Negative, Urine Bilirubin Negative, Urine Urobilinogen 0.2, Ur Leukocyte Esterase 2+ A, Urine RBC 5-10, Urine WBC 10-20, Ur Squamous Epith Cells 3-5, Urine Bacteria Trace 11/19/23 22:05: WBC 7.5, RBC 4.45, Hgb 14.4, Hct 43.5, MCV 97.7, MCH 32.4 H, MCHC 33.1, RDW 12.7, Plt Count 305, MPV 7.9, Neut % (Auto) 67.7, Lymph % (Auto) 26.2, Whitman % (Auto) 3.9, Eos % (Auto) 1.7, Baso % (Auto) 0.5, Neut # (Auto) 5.1, Lymph # (Auto) 2.0, Whitman # (Auto) 0.3, Eos # (Auto) 0.1, Baso # (Auto) 0.0, So dium 138, Potassium 5.2 H, Chloride 104, Carbon Dioxide 27, Anion Gap 12.2, BUN 13, Creatinine 0.70, Estimated Creat Clear 74, Estimated GFR 85, Est GFR ( Amer) 102, Glucose 100, Calcium 9.2, Total Bilirubin 1.5 H, AST 50 H, ALT 24, Alkaline Phosphatase 60, Total Protein 8.1, Albumin 4.6, Globulin 3.5 H, Albumin/Globulin Ratio 1.3, Lipase 59 11/19/23 22:05 11/19/23 22:05 Orders (Tests/Meds): ED MEDICATIONS Discontinued Medications Generic Name Dose Route Start Last Admin Trade Name Randy PRN Reason Stop Dose Admin Cefdinir 300 mg 11/19/23 22:20 11/19/23 22:30 Cefdinir 300mg Capsule PO 11/19/23 22:21 300 mg ONCE ONE Administration Ondansetron HCl 4 mg 11/19/23 22:01 11/19/23 22:16 Ondansetron 4mg/2ml Vial IV 11/19/23 22:02 4 mg ONCE ONE Administration ORDERS Category Date Time Status POCUS Point of Care (ER Only) Stat Exams 11/19/23 23:00 Ordered CBC w/Auto Diff [Complete Blood Count Auto Diff] Stat Lab 11/19/23 22:05 Completed CMP [Comprehensive Metabolic Panel] Stat Lab 11/19/23 22:05 Completed Lipase Stat Lab 11/19/23 22:05 Completed UA [Urinalysis and Microscopic] Stat Lab 11/19/23 21:44 Completed Urine Culture Stat Micro 11/19/23 21:44 Received Medical Decision Narrative: 62-year-old female 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 Patient states that she started having right upper quadrant abdominal pain 1 hour prior to arrival in 11/18. Started getting worse today after she woke up, but had not had anything to eat. Right upper quadrant/right ribs, radiates toward her back. Associated with nausea without vomiting initially, but progressed to vomiting and p.o. intake. Patient has not had diarrhea or constipation. No fevers or chills. No overlying skin changes. Patient took Tylenol and it relieved her pain completely, but she still worried about it. History was obtained via conversation with patient. On arrival, patient hemodynamically stable, alert, oriented x4, appropriate, GCS 15, moving all extremities spontaneously, pupils equal and reactive to light. Full physical exam performed and significant for well-appearing woman in no acute distress. Right upper quadrant tenderness with negative Chan sign. Pain is primarily overlying floating ribs on the right near the anterior axillary line. No overlying skin changes. No flank tenderness. Differential includes cholecystitis, hepatitis, UTI, nephrolithiasis, musculoskeletal strain, SBO, gastritis, enteritis, among others. Patient was given Zofran for symptomatic management and correction of underlying abnormalities. Workup independently interpreted and significant for. Nonactionable CBC or chemistry. Bedside [id number] ultrasound with cholelithiasis without secondary signs of cholecystitis. On reevaluation, patient resting comfortably. Given patient presentation, workup, history, this most likely represents UTI versus symptomatic cho lelithiasis. Because patient at baseline without signs or symptoms of clinical decompensation, deemed appropriate for discharge. Results were relayed to patient who voiced understanding and were agreeable to outpatient management and follow up. At the time of discharge the patient was hemodynamically stable, tolerating PO, and mobilizing appropriately. it was recommended that she follow- up with her family doctor regarding normal evaluation for cholecystectomy Procedures Limited Ultrasound Indication:: Limited renal ultrasound Indication: A focused ultrasound of the kidneys was performed to evaluate for hydronephrosis and nephrolithiasis. The ultrasound was performed with the following indications, as noted in the H&P: Right flank Identified structures: Right kidney Findings: Normal right kidney Impression: Normal right kidney without calculus Images [were saved] to permanent archive The study [was] technically adequate CPT: 93653-42 This study was performed by ky, and I personally interpreted all images/videos. Based on my clinical judgement, these images were adequate and did not necessitate further imaging. Views:: Limited RUQ ultrasound Indication: Abdominal pain Identified structures: -Gallbladder -Gallbladder wall -Liver Findings: Sonographic Chan sign: Absent Gallstones: Present Sludge: Absent Pericholecystic fluid: Absent Maximal GB wall thickness (mm) (normal is </= 3mm): Normal Gallbladder width (cm) (normal is < 4cm): Normal Gallbladder length (cm) (normal is < 10cm): Normal Impression: Cholelithiasis without cholecystitis Images were saved to permanent archive The study was technically adequate CPT 31531-95 This study was performed by ky, and I personally interpreted all images/videos. Based on my clinical judgement, these images were adequate and did not necessitate further imaging. Critical Care Critical Care Time Critical Care Time: No
[2023-11-19] MEDS: ONDANSETRON 4MG/2ML VIAL 4 MG IV (22:16)
[2023-11-19 22:19] LABS: Basophils % 0.5 % (0.1-2.0); Eosinophils # 0.1 K/mm3 (0.0-0.4); Eosinophils % 1.7 % (0.1-12.0); Hematocrit 43.5 % (37.0-47.0); Hemoglobin 14.4 g/dL (12.2-16.2); Lymphocytes % 26.2 % (10-50); Mean Corpuscular HGB Conc 33.1 g/dL (31.8-35.4); Mean Corpuscular Hemoglobin 32.4 pg (27.0-31.2); Mean Corpuscular Volume 97.7 fl (81-99); Mean Platelet Volume 7.9 fl (7.4-10.4); Monocytes # 0.3 K/mm3 (0.1-1.0); Monocytes % 3.9 % (1.7-9.3); Neutrophils # 5.1 K/mm3 (1.8-7.8); Neutrophils % 67.7 % (37.0-80.0); Platelet Count 305 K/mm3 (142-424); Red Blood Count 4.45 M/mm3 (4.20-5.40); Red Cell Distribution Width 12.7 % (11.5-17.5); White Blood Count 7.5 K/mm3 (4.8-10.8)
[2023-11-19 22:26] LABS: Bacteria,Urine Trace /lpf
[2023-11-19 22:28] LABS: Alanine Aminotransferase 24 U/L (12-78); Albumin Level 4.6 g/dl (3.5-5.0); Albumin/Globulin Ratio 1.3 (1.1-1.8); Alkaline Phosphatase 60 U/L (38-126); Anion Gap 12.2 mEq/L (5-15); Aspartate Amino Transferase 50 U/L (14-36); Bilirubin,Total 1.5 mg/dl (0.2-1.3); Blood Urea Nitrogen 13 mg/dl (7-17); Calcium 9.2 mg/dl (8.4-10.2); Carbon Dioxide 27 mmol/L (22.0-30.0); Chloride 104 mmol/L (98-107); Creatinine Clearance Estimated 74 mL/min (50-200); Estimated Glomerular Filt Rate 85 ml/min (>60); GFR (African American) 102 ML/MIN (>60); Globulin 3.5 g/dL (1.3-3.2); Glucose 100 mg/dl (74-100); Lipase 59 U/L (23-300); Potassium 5.2 mmoL/L (3.5-5.1); Sodium 138 mmol/L (136-145); Total Protein,Serum 8.1 g/dl (6.3-8.2)
[2023-11-19] MEDS: CEFDINIR 300MG CAPSULE 300 MG PO (22:30)
== END 2023-11-19 23:30 | disposition home or self-care (01) ==
PROVIDERS: Emergency Provider Emergency Medicine; PCP Nurse Practitioner
DX: N39.0 Urinary tract infection, site not specified (principal); R31.9 Hematuria, unspecified; R10.11 Right upper quadrant pain; R10.33 Periumbilical pain; R11.2 Nausea with vomiting, unspecified
CPT/HCPCS: 80053; 81001; 83690; 85025; 87086; 96374; 99285; J2405

== ENCOUNTER 2024-01-03 20:02 | Outpatient (CLI) | payer OTHER, SELFPAY | END 2024-01-03 23:59 | LOC: LAB.DROPOF 20:03 | PROVIDERS: PCP Nurse Practitioner Family; Visit Provider Nurse Practitioner Family | DX: R10.9 Unspecified abdominal pain (principal); B96.89 Other specified bacterial agents as the cause of diseases classified elsewhere | CPT/HCPCS: 87086 ==

== ENCOUNTER 2024-01-06 16:15 | Outpatient (CLI) | payer OTHER, SELFPAY ==
--- NOTE | 2024-01-06 16:16 | MM_ITS ---
PROCEDURE INFORMATION: Exam: MG Bilateral Screening 3D Mammography Exam date and time: 01/06/2024 4:04 PM Age: 63 years old Clinical indication: Screening examination TECHNIQUE: Imaging protocol: Bilateral Screening tomosynthesis and 2D mammography including computer-aided detection (CAD) when performed. COMPARISON: 1. MG MM DIG MAMM BI DX W/CAD 12/17/2022 1:58 PM 2. MG MM DIG MAMM DX UNILAT RT CAD 06/13/2022 2:06 PM FINDINGS: MAMMOGRAPHY: Breast composition: The breasts are almost entirely fatty. Mass: None. Architectural distortion: None. Calcifications: No suspicious calcifications. Asymmetric density: None. Skin thickening: None. Axillary adenopathy: None. IMPRESSION: No mammographic evidence of malignancy. Annual screening is recommended unless otherwise clinically indicated. ASSESSMENT: BI-RADS Category 1: Negative
== END 2024-01-06 23:59 ==
LOC: RAD 16:16
PROVIDERS: PCP Nurse Practitioner; Visit Provider Nurse Practitioner
DX: Z12.31 Encounter for screening mammogram for malignant neoplasm of breast (principal)
CPT/HCPCS: 77063; 77067

== ENCOUNTER 2024-01-14 07:19 | Outpatient (CLI) | payer OTHER, SELFPAY ==
--- NOTE | 2024-01-14 07:19 | CT_ITS ---
FINAL REPORT CLINICAL HISTORY: Abd pain/ cramping COMPARISON: None FINDINGS: Axial CT images of the abdomen and pelvis were obtained without intravenous contrast. Coronal and sagittal reformatted images were also obtained.This study was performed with techniques to keep radiation doses as low as reasonably achievable (ALARA). Individualized dose reduction techniques using automated exposure control or adjustment of mA and/or kV according to the patient's size were employed. Abdomen:The lung bases are clear. The patient has undergone a prior gastric bypass procedure. There is no evidence of renal stone or hydronephrosis. There is a small focus of increased density in the gallbladder fossa, that may represent either a collapsed gallbladder with stones versus post cholecystectomy change. The liver, spleen and pancreas have an unremarkable, unenhanced appearance. There is stranding of the small bowel mesentery with multiple mildly enlarged nodes that may be reactive, and which may reflect mesenteric panniculitis. Pelvis: Images of the pelvis reveal no evidence of ureteral dilation or ureteral stone. The appendix is normal in appearance. A sigmoid diverticulum is noted. There is stranding in the anterior pelvic subcutaneous soft tissues that may represent postoperative or post inflammatory change. There is a moderate chronic T12 compression fracture and moderate degenerative change of the thoracolumbar spine. IMPRESSION: Increased density in the gallbladder fossa that may represent a collapsed gallbladder with stones versus post cholecystectomy change. Stranding in the small bowel mesentery with multiple mildly enlarged nodes that may be reactive, which may reflect mesenteric panniculitis. There is stranding in the anterior pelvic subcutaneous soft tissues that may represent postoperative change or post inflammatory change. Reviewed, Interpreted and Dictated by Syd Hall III, MD Transcribed by Daylin Russell Authenticated and [facility]
== END 2024-01-14 23:59 ==
LOC: RAD 07:19
PROVIDERS: PCP Nurse Practitioner; Visit Provider Nurse Practitioner Family
DX: R10.30 Lower abdominal pain, unspecified (principal)
CPT/HCPCS: 74176

== ENCOUNTER 2024-01-19 17:55 | Emergency (ER) | payer OTHER, SELFPAY ==
--- NOTE | 2024-01-19 17:57 | ED_ITS ---
<Statement entered by Sea Murphy MD - 01/19/24 20:28> I was consulted by the MARIA ANTONIA, and we discussed the complexity of the problems being addressed. I approved the treatment and management plan for this patient's care in the emergency department, thus performing a substantive portion of the medical decision making. Sea Murphy MD Discharge Plan Disposition Patient Disposition: Home, Self-Care Condition: Good Prescriptions Prescriptions: New ondansetron 4 mg tablet,disintegrating 4 mg PO Q6H PRN (Reason: nausea and vomiting) Qty: 10 0RF No Action acetaminophen-codeine 300-30 mg tablet 1 tab PO TID PRN (Reason: pain) Qty: 30 2RF Linzess 290 mcg capsule 290 mcg PO DAILY dexlansoprazole [Dexilant] 30 mg capsule,biphase delayed releas 30 mg PO DAILY dicyclomine 20 mg tablet 20 mg PO QID Qty: 120 2RF trazodone 50 mg tablet See Rx Instructions .ROUTE .COMPLEX Qty: 60 2RF Dose Instruction: TAKE 1 TO 2 TABLETS BY MOUTH AT BEDTIME NIGHTLY NEEDED FOR SLEEP Rx Instructions: TAKE 1 TO 2 TABLETS BY MOUTH AT BEDTIME NIGHTLY NEEDED FOR SLEEP ciprofloxacin HCl 500 mg tablet 500 mg PO BID Qty: 14 0RF metronidazole 500 mg tablet 500 mg PO Q8H Qty: 21 0RF multivitamin [Multi-Day] 1 EACH tablet 1 ea PO DAILY calcium carbonate 500 MG tablet 500 mg PO DAILY ascorbic acid (vitamin C) [Vitamin C] 500 MG tablet 1,000 mg PO DAILY cholecalciferol (vitamin D3) 10,000 UNIT tablet 10,000 unit PO DAILY acetaminophen 500 mg tablet 500 mg PO Q6H PRN (Reason: fever) Qty: 30 3RF Referrals Follow up/Referrals: Rosalva Nieves APRN [Primary Care Provider] - See instructions Rosas Alcocer MD [Staff Physician] - See instructions Activity Restrictions/Add. Instructions Additional Instructions/Restrictions: Follow-up with your bariatric surgeon tomorrow with the following diagnoses as well. We have provided a disc for you. I have also provided contact information for Dr. Channing Alcocer locally Clinical Impressions Clinical Impression: Sclerosing mesenteritis Abdominal pain Qualifiers: Abdominal location: generalized Qualified Code(s): R10.84 - Generalized abdominal pain Instructions Patient Instructions: DI for Acute Abdominal Pain Discharge ED Provider: Sea Murphy General Adult HPI General Chief complaint: Abdominal Pain Stated complaint: abd pain Time Seen by Provider: 01/19/24 17:57 History of Present Illness HPI narrative: Patient presents with a flare of abdominal pain that she has been having for approximately 6 months. Patient states that the pain is diffuse intense with some associated nausea. 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 Patient's most recent surgery was a cholecystectomy done in [facility]. Patient denies chest pain fever chills hemoptysis hematochezia melena hematemesis hematuria dysuria vomiting. Related Data Home Medications Medication Instructions Recorded Confirmed ascorbic acid (vitamin C) 500 mg 1,000 mg PO DAILY Supplement 01/18/18 01/03/24 tablet (Vitamin C) calcium carbonate 500 mg calcium 500 mg PO DAILY Supplement 01/18/18 01/03/24 (1,250 mg) tablet cholecalciferol (vitamin D3) 250 10,000 unit PO DAILY Supplement 01/18/18 01/03/24 mcg (10,000 unit) tablet multivitamin (Multi-Day tablet) 1 ea PO DAILY Supplement 01/18/18 01/03/24 linaclotide 290 mcg capsule 290 mcg PO DAILY 08/28/23 01/03/24 (Linzess) dexlansoprazole 30 mg 30 mg PO DAILY 09/03/23 01/03/24 capsule,biphase delayed release (Dexilant) Previous Rx's Medication Instructions Recorded acetaminophen 300 mg-codeine 30 mg 1 tab PO TID PRN pain #30 tabs 07/26/23 tablet acetaminophen 500 mg tablet 500 mg PO Q6H PRN fever #30 tabs 09/05/23 trazodone 50 mg tablet See Rx Instructions .Route 10/29/23 .COMPLEX #60 tabs dicyclomine 20 mg tablet 20 mg PO QID #120 tabs 01/03/24 ciprofloxacin HCl 500 mg tablet 500 mg PO BID #14 tabs 01/17/24 metronidazole 500 mg tablet 500 mg PO Q8H #21 tabs 01/17/24 ondansetron 4 mg disintegrating 4 mg PO Q6H PRN nausea and 01/19/24 tablet vomiting #10 tabs Allergies Allergy/AdvReac Type Severity Reaction Status Date / Time No Known Allergies Allergy Verified 01/03/24 09:57 [facility] Disclaimer: The information contained in this section may have been updated after the patient was seen, as this information can be updated by other users. Medical History (Updated 01/19/24 @ 20:15 by NIHARIKA Dotson) Cholelithiasis Postmenopausal bleeding Surgical History (Updated 01/13/24 @ 22:28 by Anirudh Olmedo APRN) History of D&C History of hysteroscopy H/O abdominoplasty Hx of bilateral breast reduction surgery H/O gastric sleeve H/O gastric bypass Family History Mother Cancer cervical Social History Smoking Status: Never smoker alcohol intake: never substance use type: denies use current occupational status: employed Travel in the last 8 weeks: None household members: spouse housing: house marital status: ROS Obtained: Yes Systems reviewed as appropriate & no additional complaints except as documented Physical Exam General General appearance: alert and in no apparent distress Head Head exam: atraumatic and normal inspection Eye Eye exam: Present normal appearance, PERRL and EOMI ENT ENT exam: Present normal exam, normal oropharynx and mucous membranes moist Neck Neck exam: Present normal inspection and full ROM Chest Chest inspection: Present normal inspection and symmetric chest wall rise Respiratory Respiratory exam: Present normal lung sounds bilaterally; Absent respiratory distress Cardiovascular Cardiovascular exam: Present regular rate and normal rhythm Abdominal Exam Abdominal exam: Present soft, tenderness (Tender diffusely) and normal bowel sounds; Absent guarding or rebound Extremities Exam Extremities exam: Present normal inspection and full ROM Neurological Exam Neurological exam: Present alert and oriented X3 Psychiatric Psychiatric exam: Present normal affect and normal mood Skin Skin exam: Present warm, dry and normal color Medical Decision Making Medical Records Medical records reviewed: Yes I reviewed the patient's medical records. Torey Inquiry Pt receiving controlled substance: No Vital Signs: 01/19/24 18:17 01/19/24 19:31 Temperature 98.1 F Temperature Source Oral Pulse Rate 68 Pulse Rate [Right Radial] 95 H Respiratory Rate 18 Blood Pressure 130/60 Blood Pressure [Right Arm] 162/87 H Blood Pressure Mean [Right Arm] 112 02 Sat by Pulse Oximetry 100 99 Oxygen Delivery Method Room Air Lab Data Lab results reviewed: Yes I reviewed the patient's lab results. Lab Results 01/19/24 18:10: WBC 6.5, RBC 4.45, Hgb 14.2, Hct 43.1, MCV 96.8, MCH 31.8 H, MCHC 32.9, RDW 13.2, Plt Count 299, MPV 8.1, Neut % (Auto) 71.0, Lymph % (Auto) 21.7, [place] % (Auto) 4.7, Eos % (Auto) 1.5, Baso % (Auto) 1.1, Neut # (Auto) 4.6, Lymph # (Auto) 1.4, [place] # (Auto) 0.3, Eos # (Auto) 0.1, Baso # (Auto) 0.1, PT 10.9, INR 1.01, D-Dimer 0.66 H, Sodium 139, Potassium 4.9, Chloride 107, Carbon Dioxide 25, Anion Gap 11.9, BUN 11, Creatinine 0.80, Estimated Creat Clear 71, Estimated GFR 72, Est GFR ( Amer) 87, Glucose 120 H, Lactate 1.2, Calcium 9.7, Magnesium 1.9, Total Bilirubin 1.2, AST 43 H, ALT 24, Alkaline Phosphatase 58, Total Protein 7.7, Albumin 4.6, Globulin 3.1, Albumin/Globulin Ratio 1.5, Procalcitonin < 0.030 01/19/24 18:32: Urine Color Yellow, Urine Appearance Clear, Urine pH 6.0, Ur Specific [place] >= 1.030, Urine Protein Trace, Urine Glucose (UA) Negative, Urine Ketones Trace, Urine Blood Negative, Urine Nitrate Negative, Urine Bilirubin 1+ A, Urine Urobilinogen 0.2, Ur Leukocyte Esterase Trace, Urine RBC None, Urine WBC 5-10, Ur Squamous Epith Cells 5-10, Urine Bacteria 1+ 01/19/24 18:10 01/19/24 18:10 Orders (Tests/Meds): ED MEDICATIONS Discontinued Medications Generic Name Dose Route Start Last Admin Trade Name Freq PRN Reason Stop Dose Admin Acetaminophen 1,000 mg 01/19/24 18:14 01/19/24 18:54 Acetaminophen 1,000mg/100ml Vial IV 01/19/24 18:15 1,000 mg ONCE ONE Administration Lactated Ringer's 1,000 mls @ 999 mls/hr 01/19/24 18:14 01/19/24 18:39 Lactated Ringer's 1000 Ml Bag IV 01/19/24 19:14 999 mls/hr .Q1H1M ONE Administration Iopamidol 75 ml 01/19/24 18:59 01/19/24 19:00 Iopamidol-370 (76%);100ml Bottle IV 01/19/24 19:00 75 ml ONCE ONE Administration Ketorolac Tromethamine 15 mg 01/19/24 18:14 01/19/24 18:39 Ketorolac 30mg/Ml Vial IV 01/19/24 18:15 15 mg ONCE ONE Administration Morphine Sulfate 2 mg 01/19/24 18:14 01/19/24 18:39 Morphine 2mg/Ml Syringe IV 01/19/24 18:15 2 mg ONCE ONE Administration Ondansetron HCl 4 mg 01/19/24 18:14 01/19/24 19:25 Ondansetron 4mg Odt SL 01/19/24 18:15 Not Given ONCE ONE Ondansetron HCl 4 mg 01/19/24 18:40 01/19/24 18:41 Ondansetron 4mg/2ml Vial IV 01/19/24 18:41 4 mg ONCE ONE Administration Sodium Chloride 10 ml 01/19/24 18:59 01/19/24 19:00 Sodium Chloride 0.9% 10ml Syr (Rad Only) IV 01/19/24 19:00 10 ml ONCE ONE Administration ORDERS Category Date Time Status CT abdomen pelvis w con Stat Cat Scan 01/19/24 18:14 Completed CBC w/Auto Diff [Complete Blood Count Auto Diff] Stat Lab 01/19/24 18:10 Completed CMP [Comprehensive Metabolic Panel] Stat Lab 01/19/24 18:10 Completed D-Dimer Stat Lab 01/19/24 18:10 Completed INR [Prothrombin Time INR] Stat Lab 01/19/24 18:10 Completed Lactic Acid Stat Lab 01/19/24 18:10 Completed Magnesium Stat Lab 01/19/24 18:10 Completed Procalcitonin Stat Lab 01/19/24 18:10 Completed UA [Urinalysis and Microscopic] Stat Lab 01/19/24 18:32 Completed Medical Decision Narrative: In summary patient is a 63-year-old female who presents to the emergency department for evaluation of abdominal pain. Patient is hemodynamically stable upon arrival, afebrile. Zickel exam is remarkable for diffuse moderately tender abdominal pain without rebound guarding or rigidity. Remainder of her exam is nonfocal and unremarkable. Differential diagnosis includes bowel obstruction versus bowel infarction versus internal hernia versus gastroenteritis versus bowel perforation etc. Initial workup will be conducted with hematologic labs CT scan of the abdomen pelvis with contrast. Initial interventions include crystalloid bolus Toradol Tylenol and morphine. Initial workup reviewed by me shows that her white count is normal, transaminases are normal, and the remainder of her laboratory investigations are nonactionable. My informal read of her CT scan again shows areas of nodularity and william mesentery that look like reactive although the patient has no GI symptoms no urinary symptoms other than pain. Upon repeat evaluation patient did have resolution of her nausea and had abatement of her pain however she reports that it is coming back. Given this she is appropriate for discharge with follow-up with general surgery tomorrow in [place]. Patient may likely need a biopsy of this area considering that it looks like sclerosing mesenteritis. Additionally given the patient contact information for Dr. Channing Choudhary should she require second opinion or further workup outside of her bariatric surgeon. Critical Care Critical Care Time Critical Care Time: No
--- NOTE | 2024-01-19 18:14 | CT_ITS ---
PROCEDURE INFORMATION: Exam: CT Abdomen And Pelvis With Contrast Exam date and time: 01/19/2024 6:53 PM Age: 63 years old Clinical indication: Abdominal pain TECHNIQUE: Imaging protocol: Computed tomography of the abdomen and pelvis with contrast. Radiation optimization: All CT scans at this facility use at least one of these dose optimization techniques: automated exposure control; mA and/or kV adjustment per patient size (includes targeted exams where dose is matched to clinical indication); or iterative reconstruction. Contrast material: ISOVUE; Contrast volume: 75 ml; Contrast route: IV; COMPARISON: CT ABDOMEN PELVIS WO CON 01/14/2024 7:28 AM FINDINGS: Liver: Mild hypoattenuation of the liver adjacent to the falciform ligament compatible with fatty replacement. Gallbladder and bile ducts: There are surgical clips within the gallbladder fossa. Pancreas: Normal. No ductal dilation. Spleen: Normal. No splenomegaly. Adrenal glands: Normal. No mass. Kidneys and ureters: Normal. No hydronephrosis. Stomach and bowel: Postsurgical changes with chain suture material at the left upper quadrant compatible with Joesph-en-Y gastric bypass. Diverticula are scattered throughout the colon without inflammatory changes. Appendix: No evidence of appendicitis. Intraperitoneal space: Unremarkable. No free air. No significant fluid collection. Vasculature: Unremarkable. No abdominal aortic aneurysm. Lymph nodes: Left upper quadrant multiple prominent mesenteric nodes measuring greater than 5 mm in short axis, mesenteric edema and inflammatory changes can be seen with moderate infectious or inflammatory enteritis. Urinary bladder: Unremarkable as visualized. Reproductive: Unremarkable as visualized. Bones/joints: Moderate loss of intervertebral disc space with degenerative changes at lower thoracic and lumbar spine greatest between T10 and L2. Chronic appearing anterior wedging at the thoracolumbar junction unchanged from prior exam. Soft tissues: Normal. IMPRESSION: Left upper quadrant multiple prominent mesenteric nodes measuring greater than 5 mm in short axis, mesenteric edema and inflammatory changes can be seen with moderate infectious or inflammatory enteritis.
[2024-01-19 18:17] VITALS: BP 162/87; PULSE 95; RESP 18; TEMP 36.7; O2SAT 100; BMI 29.1
[2024-01-19 18:34] LABS: INR 1.01 (0.9-1.1); Prothrombin Time 10.9 seconds (10.1-12.5)
--- NOTE | 2024-01-19 18:38 | PC.NURSE ---
Pt ambulatory to bathroom
[2024-01-19] MEDS: LACTATED RINGERS 1000ML 1,000 ML 999 ML IV (18:39)
[2024-01-19] MEDS: KETOROLAC 30MG/ML VIAL 15 MG IV (18:39)
[2024-01-19] MEDS: MORPHINE 2MG/ML SYRINGE 2 MG IV (18:39)
[2024-01-19 18:40] LABS: Alanine Aminotransferase 24 U/L (12-78); Albumin Level 4.6 g/dl (3.5-5.0); Albumin/Globulin Ratio 1.5 (1.1-1.8); Alkaline Phosphatase 58 U/L (38-126); Anion Gap 11.9 mEq/L (5-15); Aspartate Amino Transferase 43 U/L (14-36); Bilirubin,Total 1.2 mg/dl (0.2-1.3); Blood Urea Nitrogen 11 mg/dl (7-17); Calcium 9.7 mg/dl (8.4-10.2); Carbon Dioxide 25 mmol/L (22.0-30.0); Chloride 107 mmol/L (98-107); Creatinine Clearance Estimated 71 mL/min (50-200); Estimated Glomerular Filt Rate 72 ml/min (>60); GFR (African American) 87 ML/MIN (>60); Globulin 3.1 g/dL (1.3-3.2); Glucose 120 mg/dl (74-100); Lactic Acid 1.2 mmol/L (0.7-2.1); Magnesium 1.9 mg/dl (1.6-2.3); Potassium 4.9 mmoL/L (3.5-5.1); Sodium 139 mmol/L (136-145); Total Protein,Serum 7.7 g/dl (6.3-8.2)
[2024-01-19] MEDS: ONDANSETRON 4MG/2ML VIAL 4 MG IV (18:41)
[2024-01-19 18:44] LABS: Microscopic, Urine URINE MICROSCOPIC (MICROSCOPIC)
[2024-01-19 18:45] LABS: Appearance,Urine CLEAR (Clear); Blood, Urine Negative (Negative); Color,Urine YELLOW (Yellow); Glucose,Urine (UA) Negative (Negative); Ketones,Urine TRACE (Negative); Leukocyte Esterase,Urine TRACE (Negative); Nitrate,Urine Negative (Negative); Protein,Urine TRACE (Negative); Specific Gravity, Urine >= 1.030 (1.005-1.030); Urobilinogen,Urine 0.2 EU/dl (0.2)
[2024-01-19 18:53] LABS: Basophils # 0.1 K/mm3 (0-0.2); Basophils % 1.1 % (0.1-2.0); Eosinophils # 0.1 K/mm3 (0.0-0.4); Eosinophils % 1.5 % (0.1-12.0); Hematocrit 43.1 % (37.0-47.0); Hemoglobin 14.2 g/dL (12.2-16.2); Lymphocytes # 1.4 K/mm3 (0.7-4.5); Lymphocytes % 21.7 % (10-50); Mean Corpuscular HGB Conc 32.9 g/dL (31.8-35.4); Mean Corpuscular Hemoglobin 31.8 pg (27.0-31.2); Mean Corpuscular Volume 96.8 fl (81-99); Mean Platelet Volume 8.1 fl (7.4-10.4); Monocytes # 0.3 K/mm3 (0.1-1.0); Monocytes % 4.7 % (1.7-9.3); Neutrophils # 4.6 K/mm3 (1.8-7.8); Platelet Count 299 K/mm3 (142-424); Red Blood Count 4.45 M/mm3 (4.20-5.40); Red Cell Distribution Width 13.2 % (11.5-17.5); White Blood Count 6.5 K/mm3 (4.8-10.8)
[2024-01-19] MEDS: ACETAMINOPHEN 1,000MG/100ML VIAL 1000 MG IV (18:54)
[2024-01-19 18:55] LABS: D-Dimer 0.66 ug/mL (0.0-0.5)
[2024-01-19 18:56] LABS: Bacteria,Urine 1+ /lpf; Bilirubin,Urine 1+ (Negative)
[2024-01-19 19:00] LABS: Procalcitonin < 0.030 ng/mL (0.0-2.0)
[2024-01-19] MEDS: IOPAMIDOL-370 (76%);100ML BOTTLE 75 ML IV (19:00)
[2024-01-19] MEDS: SODIUM CHLORIDE 0.9% 10ML SYR (RAD ONLY) 10 ML IV (19:00)
[2024-01-19 19:31] VITALS: BP 130/60; PULSE 68; O2SAT 99
--- NOTE | 2024-01-19 19:31 | PC.NURSE ---
rounded on patient, spouse at bedside, no needs at this time
--- NOTE | 2024-01-19 20:07 | PC.NURSE ---
Mid level in room talking with patient and her
[2024-01-19 20:28] VITALS: BP 128/72; PULSE 71; RESP 18; TEMP 36.7; O2SAT 100
== END 2024-01-19 20:29 | disposition home or self-care (01) ==
PROVIDERS: Physician Assistant; Emergency Provider Emergency Medicine; PCP Nurse Practitioner
DX: R10.84 Generalized abdominal pain (principal); K65.4 Sclerosing mesenteritis
CPT/HCPCS: 74177; 80053; 81001; 83605; 83735; 84145; 85025; 85378; 85610; 96361; 96374; 96375; 99285; J0131; J2405; Q9967

== ENCOUNTER 2024-01-23 10:32 | Outpatient (CLI) | payer OTHER, SELFPAY ==
[2024-01-23 23:25] LABS: Adenovirus F 40/41, stool Not Detected (NotDetected); Astrovirus Not Detected (NotDetected); Campylobacter Not Detected (NotDetected); Clostridium Difficile A/B, PCR Not Detected (NotDetected); Cryptosporidium Not Detected (NotDetected); Cyclospora Cayetanesis Not Detected (NotDetected); Entamoeba histolytica Not Detected (NotDetected); Enteroaggregative E coli Not Detected (NotDetected); Enteropathogenic E coli Not Detected (NotDetected); Enterotoxigenic E coli Not Detected (NotDetected); Giardia lamblia Not Detected (NotDetected); Norovirus Not Detected (NotDetected); Plesimonas Shigalloides, PCR Not Detected (NotDetected); Rotavirus A Not Detected (NotDetected); Salmonella, PCR Not Detected (NotDetected); Sapovirus Not Detected (NotDetected); Shiga-like toxin E coli Not Detected (NotDetected); Shigella Enterovasive E coli Not Detected (NotDetected); Vibrio Cholerae Not Detected (NotDetected); Vibrio, PCR Not Detected (NotDetected); Yersinia Entercolitica, PCR Not Detected (NotDetected)
== END 2024-01-23 23:59 ==
LOC: LAB.DROPOF 10:33
PROVIDERS: PCP Nurse Practitioner; Visit Provider Physician Assistant
DX: R10.9 Unspecified abdominal pain (principal)
CPT/HCPCS: 87507

== ENCOUNTER 2024-02-21 13:45 | Emergency (ER) | payer OTHER, SELFPAY ==
--- NOTE | 2024-02-21 13:58 | HMH.EDGENADL ---
Discharge Plan Disposition Patient Disposition: Home, Self-Care Condition: Fair Prescriptions Prescriptions: No Action acetaminophen-codeine 300-30 mg tablet 1 tab PO TID PRN (Reason: pain) Qty: 30 2RF Linzess 290 mcg capsule 290 mcg PO DAILY dexlansoprazole [Dexilant] 30 mg capsule,biphase delayed releas 30 mg PO DAILY dicyclomine 20 mg tablet 20 mg PO QID Qty: 120 2RF trazodone 50 mg tablet See Rx Instructions .ROUTE .COMPLEX Qty: 60 2RF Dose Instruction: TAKE 1 TO 2 TABLETS BY MOUTH AT BEDTIME NIGHTLY NEEDED FOR SLEEP Rx Instructions: TAKE 1 TO 2 TABLETS BY MOUTH AT BEDTIME NIGHTLY NEEDED FOR SLEEP ciprofloxacin HCl 500 mg tablet 500 mg PO BID Qty: 14 0RF metronidazole 500 mg tablet 500 mg PO Q8H Qty: 21 0RF multivitamin [Multi-Day] 1 EACH tablet 1 ea PO DAILY calcium carbonate 500 MG tablet 500 mg PO DAILY ascorbic acid (vitamin C) [Vitamin C] 500 MG tablet 1,000 mg PO DAILY cholecalciferol (vitamin D3) 10,000 UNIT tablet 10,000 unit PO DAILY ondansetron 4 mg tablet,disintegrating 4 mg PO Q6H PRN (Reason: nausea and vomiting) Qty: 10 0RF acetaminophen 500 mg tablet 500 mg PO Q6H PRN (Reason: fever) Qty: 30 3RF Referrals Follow up/Referrals: Rosalva Nieves APRN [Primary Care Provider] - See instructions Activity Restrictions/Add. Instructions Additional Instructions/Restrictions: You were seen in the ED today due to abdominal pain. Labs were reassuring. Please follow-up with your machine pecan gatherer. Return to the ED if symptoms worsen or if new concerning symptoms arise. Clinical Impressions Clinical Impression: Abdominal pain Qualifiers: Abdominal location: generalized Qualified Code(s): R10.84 - Generalized abdominal pain Instructions Patient Instructions: DI for Acute Abdominal Pain Discharge ED Provider: Alexis Turner General Adult HPI General Chief complaint: Abdominal Pain Stated complaint: abd pain-gastro in [place] sent over Time Seen by Provider: 02/21/24 13:50 History of Present Illness HPI narrative: Patient is a 63-year-old female with history of gastric bypass who presents due to abdominal pain. Patient's is present to help provide history. Patient reports for the past 3 months she has had persistent lower abdominal pain. States she has also had nausea and vomiting. Patient states she was seen in the ED approximately 1 month ago and was told she may have sclerosing mesenteritis. She followed up with her machine pecan gatherer who, after colonoscopy, told her she may be having intestinal spasms. Patient presents today due to persistent pain. States she has tried taking Tylenol and Bentyl at home with no relief. States she has not followed up with her bariatric surgeon. Denies any fevers, diarrhea, difficulty urinating. Related Data Home Medications Medication Instructions Recorded Confirmed ascorbic acid (vitamin C) 500 mg 1,000 mg PO DAILY Supplement 01/18/18 01/03/24 tablet (Vitamin C) calcium carbonate 500 mg PO DAILY Supplement 01/18/18 01/03/24 cholecalciferol (vitamin D3) 250 10,000 unit PO DAILY Supplement 01/18/18 01/03/24 mcg (10,000 unit) tablet multivitamin (Multi-Day tablet) 1 ea PO DAILY Supplement 01/18/18 01/03/24 linaclotide 290 mcg capsule 290 mcg PO DAILY 08/28/23 01/03/24 (Linzess) dexlansoprazole 30 mg 30 mg PO DAILY 09/03/23 01/03/24 capsule,biphase delayed release (Dexilant) Previous Rx's Medication Instructions Recorded acetaminophen 300 mg-codeine 30 mg 1 tab PO TID PRN pain #30 tabs 07/26/23 tablet acetaminophen 500 mg tablet 500 mg PO Q6H PRN fever #30 tabs 09/05/23 trazodone 50 mg tablet See Rx Instructions .Route 10/29/23 .COMPLEX #60 tabs dicyclomine 20 mg tablet 20 mg PO QID #120 tabs 01/03/24 ciprofloxacin HCl 500 mg tablet 500 mg PO BID #14 tabs 01/17/24 metronidazole 500 mg tablet 500 mg PO Q8H #21 tabs 01/17/24 ondansetron 4 mg disintegrating 4 mg PO Q6H PRN nausea and 01/19/24 tablet vomiting #10 tabs Allergies Allergy/AdvReac Type Severity Reaction Status Date / Time No Known Allergies Allergy Verified 01/03/24 09:57 [facility] Disclaimer: The information contained in this section may have been updated after the patient was seen, as this information can be updated by other users. Medical History (Updated 02/21/24 @ 15:37 by Alexis Turner MD) Cholelithiasis Postmenopausal bleeding Surgical History (Updated 01/13/24 @ 22:28 by Anirudh Olmedo APRN) History of D&C History of hysteroscopy H/O abdominoplasty Hx of bilateral breast reduction surgery H/O gastric sleeve H/O gastric bypass Family History Mother Cancer cervical Social History Smoking Status: Never smoker alcohol intake: never substance use type: denies use current occupational status: employed Travel in the last 8 weeks: None household members: spouse housing: house marital status: ROS Obtained: Yes All systems reviewed & no additional complaints except as documented Gastrointestinal Gastrointestingal: Reports abdominal pain, nausea and vomiting Physical Exam General General appearance: alert and in no apparent distress Head Head exam: atraumatic, normocephalic and normal inspection Eye Eye exam: Present normal appearance, PERRL and EOMI ENT ENT exam: Present normal exam, normal oropharynx, mucous membranes moist, TM's normal bilaterally and normal external ear exam Neck Neck exam: Present normal inspection, full ROM and trachea midline; Absent meningismus or lymphadenopathy Chest Chest inspection: Present normal inspection and symmetric chest wall rise; Absent tenderness Respiratory Respiratory exam: Present normal lung sounds bilaterally; Absent respiratory distress Cardiovascular Cardiovascular exam: Present regular rate and normal rhythm; Absent JVD Abdominal Exam Abdominal exam: Present soft, tenderness and normal bowel sounds; Absent distention or guarding Comment: Diffuse moderate tenderness to palpation. Abdomen soft, nondistended. Extremities Exam Extremities exam: Present normal inspection, full ROM and normal capillary refill; Absent calf tenderness Back Exam Back exam: Present normal inspection; Absent tenderness Neurological Exam Neurological exam: Present alert and oriented X3 Psychiatric Psychiatric exam: Present normal affect and normal mood Skin Skin exam: Present warm, dry, intact and normal color Lymphatic Lymphatic Findings: no adenopathy Medical Decision Making Torey Inquiry Pt receiving controlled substance: No Vital Signs: 02/21/24 14:00 02/21/24 14:31 02/21/24 15:45 Temperature 98.3 F 98.3 F Temperature Source Oral Oral Pulse Rate 66 74 Pulse Rate [Left Radial] 80 Respiratory Rate 20 18 Blood Pressure 144/75 H 153/71 H Blood Pressure [Right Arm] 153/83 H Blood Pressure Mean [Right Arm] 106 Blood Pressure Source Automatic Cuff Blood Pressure Position Sitting 02 Sat by Pulse Oximetry 98 96 Oxygen Delivery Method Room Air Room Air Lab Data Lab Results 02/21/24 13:50: Urine Color Yellow, Urine Appearance Clear, Urine pH 6.0, Ur Specific [place] 1.025, Urine Protein Negative, Urine Glucose (UA) Negative, Urine Ketones 1+, Urine Blood 1+, Urine Nitrate Negative, Urine Bilirubin 1+ A, Urine Urobilinogen 0.2, Ur Leukocyte Esterase 2+ A, Urine RBC Occasional, Urine WBC 5-10, Ur Squamous Epith Cells 3-5, Urine Bacteria Trace 02/21/24 14:00: WBC 7.6, RBC 4.21, Hgb 13.3, Hct 40.6, MCV 96.4, MCH 31.6 H, MCHC 32.8, RDW 13.5, Plt Count 310, MPV 7.9, Neut % (Auto) 73.5, Lymph % (Auto) 19.2, [place] % (Auto) 4.5, Eos % (Auto) 2.2, Baso % (Auto) 0.6, Neut # (Auto) 5.6, Lymph # (Auto) 1.5, [place] # (Auto) 0.3, Eos # (Auto) 0.2, Baso # (Auto) 0.1, Sodium 140, Potassium 4.0, Chloride 106, Carbon Dioxide 29, Anion Gap 9.0, BUN 12, Creatinine 0.60, Estimated Creat Clear 69, Estimated GFR 101, Est GFR ( Amer) 122, Glucose 103 H, Calcium 9.7, Total Bilirubin 1.3, AST 35, ALT 24, Alkaline Phosphatase 73, Total Protein 7.3, Albumin 4.3, Globulin 3.0, Albumin/Globulin Ratio 1.4, Lipase 38 02/21/24 14:00 02/21/24 14:00 Orders (Tests/Meds): ED MEDICATIONS Discontinued Medications Generic Name Dose Route Start Last Admin Trade Name Freq PRN Reason Stop Dose Admin Lactated Ringer's 1,000 mls @ 999 mls/hr 02/21/24 13:58 02/21/24 14:09 Lactated Ringer's 1000 Ml Bag IV 02/21/24 14:58 999 mls/hr .Q1H1M ONE Administration Morphine Sulfate 4 mg 02/21/24 13:58 02/21/24 14:09 Morphine 4mg/Ml Syringe IV 02/21/24 13:59 4 mg ONCE ONE Administration Ondansetron HCl 4 mg 02/21/24 13:58 02/21/24 14:09 Ondansetron 4mg/2ml Vial IV 02/21/24 13:59 4 mg ONCE ONE Administration ORDERS Category Date Time Status CBC w/Auto Diff [Complete Blood Count Auto Diff] Stat Lab 02/21/24 14:00 Completed CMP [Comprehensive Metabolic Panel] Stat Lab 02/21/24 14:00 Completed Lipase Stat Lab 02/21/24 14:00 Completed Urinalysis and Microscopic Stat Lab 02/21/24 13:50 Completed Urine Culture Stat Micro 02/21/24 13:50 Received Medical Decision Narrative: In summary, patient is 63-year-old female with history of gastric bypass, evaluated in the emergency department today due to abdominal pain for the past 3 months. On arrival, patient is hypertensive, hemodynamically stable, afebrile. On examination, patient has diffuse moderate abdominal tenderness. Differential diagnosis includes but is not limited to gastritis, pancreatitis, urinary tract infection, colitis, enteritis, dysmotility. Patient given LR bolus, IV morphine, IV Zofran. Workup initiated including CBC, CMP, lipase, urinalysis. Labs independently interpreted by me, no significant findings seen. CT Abdo/pelvis with contrast from 01/19/24 reviewed, demonstrating prominent mesenteric nodes, mesenteric edema and inflammatory changes. On reevaluation, patient reports improvement in symptoms. Given reassuring workup and symptomatic improvement, she is appropriate for discharge and outpatient follow-up at this time. Patient states she will follow-up with her machine pecan gatherer and bariatric surgeon. Patient counseled on home care, given strict return precautions and agreeable to plan. Additional history was provided by family. I considered the utility of obtaining CT scan, but decided against this because patient states pain has not changed since her last CT scan 1 month ago. I considered the utility of treatment with prescription for narcotics, but decided against this because risks outweigh benefits. Critical Care Critical Care Time Critical Care Time: No
[2024-02-21 14:00] VITALS: BP 153/83; PULSE 80; RESP 20; TEMP 36.8; O2SAT 98; BMI 29.2
[2024-02-21] MEDS: LACTATED RINGERS 1000ML 1,000 ML 999 ML IV (14:09)
[2024-02-21] MEDS: MORPHINE 4MG/ML SYRINGE 4 MG IV (14:09)
[2024-02-21] MEDS: ONDANSETRON 4MG/2ML VIAL 4 MG IV (14:09)
[2024-02-21 14:15] LABS: Microscopic, Urine URINE MICROSCOPIC (MICROSCOPIC)
[2024-02-21 14:18] LABS: Basophils # 0.1 K/mm3 (0-0.2); Basophils % 0.6 % (0.1-2.0); Eosinophils # 0.2 K/mm3 (0.0-0.4); Eosinophils % 2.2 % (0.1-12.0); Hematocrit 40.6 % (37.0-47.0); Hemoglobin 13.3 g/dL (12.2-16.2); Lymphocytes # 1.5 K/mm3 (0.7-4.5); Lymphocytes % 19.2 % (10-50); Mean Corpuscular HGB Conc 32.8 g/dL (31.8-35.4); Mean Corpuscular Hemoglobin 31.6 pg (27.0-31.2); Mean Corpuscular Volume 96.4 fl (81-99); Mean Platelet Volume 7.9 fl (7.4-10.4); Monocytes # 0.3 K/mm3 (0.1-1.0); Monocytes % 4.5 % (1.7-9.3); Neutrophils # 5.6 K/mm3 (1.8-7.8); Neutrophils % 73.5 % (37.0-80.0); Platelet Count 310 K/mm3 (142-424); Red Blood Count 4.21 M/mm3 (4.20-5.40); Red Cell Distribution Width 13.5 % (11.5-17.5); White Blood Count 7.6 K/mm3 (4.8-10.8)
[2024-02-21 14:20] LABS: Alanine Aminotransferase 24 U/L (12-78); Albumin Level 4.3 g/dl (3.5-5.0); Albumin/Globulin Ratio 1.4 (1.1-1.8); Alkaline Phosphatase 73 U/L (38-126); Aspartate Amino Transferase 35 U/L (14-36); Bilirubin,Total 1.3 mg/dl (0.2-1.3); Blood Urea Nitrogen 12 mg/dl (7-17); Calcium 9.7 mg/dl (8.4-10.2); Carbon Dioxide 29 mmol/L (22.0-30.0); Chloride 106 mmol/L (98-107); Creatinine Clearance Estimated 69 mL/min (50-200); Estimated Glomerular Filt Rate 101 ml/min (>60); GFR (African American) 122 ML/MIN (>60); Glucose 103 mg/dl (74-100); Lipase 38 U/L (23-300); Sodium 140 mmol/L (136-145); Total Protein,Serum 7.3 g/dl (6.3-8.2)
[2024-02-21 14:25] LABS: Appearance,Urine CLEAR (Clear); Blood, Urine 1+ (Negative); Color,Urine YELLOW (Yellow); Glucose,Urine (UA) Negative (Negative); Ketones,Urine 1+ (Negative); Leukocyte Esterase,Urine 2+ (Negative); Nitrate,Urine Negative (Negative); Protein,Urine Negative (Negative); Specific Gravity, Urine 1.025 (1.005-1.030); Urobilinogen,Urine 0.2 EU/dl (0.2)
[2024-02-21 14:31] VITALS: BP 144/75; PULSE 66; O2SAT 96
[2024-02-21 14:43] LABS: Bilirubin,Urine 1+ (Negative)
[2024-02-21 14:52] LABS: Bacteria,Urine Trace /lpf; RBC,Urine Occasional #/hpf (0-3)
--- NOTE | 2024-02-21 14:52 | PC.NURSE ---
Rounded on patient, no needs voiced at this time.
[2024-02-21 15:45] VITALS: BP 153/71; PULSE 74; RESP 18; TEMP 36.8; O2SAT 99
--- NOTE | 2024-02-26 12:04 | PC.NURSE ---
URINE CULTURE DISCUSSED WITH DR MENDOZA, PT ASYMPTOMATIC. NO MED CHANGES
== END 2024-02-21 15:45 | disposition home or self-care (01) ==
PROVIDERS: Emergency Provider Student in an Organized Health Care Education/Training Program; PCP Nurse Practitioner
DX: B95.0 Streptococcus, group A, as the cause of diseases classified elsewhere (principal); R10.84 Generalized abdominal pain; Z98.84 Bariatric surgery status; R11.2 Nausea with vomiting, unspecified
CPT/HCPCS: 80053; 81001; 83690; 85025; 87086; 96361; 96374; 96375; 99285; J2405

== ENCOUNTER 2024-03-11 08:42 | Outpatient (CLI) | payer OTHER, SELFPAY ==
--- NOTE | 2024-03-11 08:46 | FL_ITS ---
FINAL REPORT CLINICAL HISTORY: abd pain ft: 1:50 58.02 mGy 1107.14 DAP FINDINGS: SMALL BOWEL FOLLOW THROUGH HISTORY: Acute generalized abdominal pain. PROCEDURE: The patient ingested barium. Spot and overhead films were obtained. FINDINGS: The top knitter film is unremarkable. 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 There is rapid transit time to the colon within 15 minutes. The mucosal fold pattern is normal. Spot images of the terminal ileum are unremarkable. Number of images: 8 Fluoro time: 1 minute 50 seconds Radiation exposure in Reference air Kerma: 58.02 mGy. IMPRESSION: Rapid transit time to the colon, otherwise unremarkable exam. Films reviewed , interpreted and dictated by Dr. Hall. Transcribed by Jordan Rowland PA-C. Reviewed, Interpreted and Dictated by Syd Hall III, MD Transcribed by NIHARIKA Emery Authenticated and [facility]
[2024-03-11] MEDS: BARIUM SULFATE(LIQUID E-Z-PAQUE);355ML BOTTLE 355 ML PO (09:11)
== END 2024-03-11 23:59 | disposition home or self-care (01) ==
LOC: RAD 08:43
PROVIDERS: PCP Nurse Practitioner; Visit Provider Physician Assistant
DX: R10.9 Unspecified abdominal pain (principal)
CPT/HCPCS: 74250

== ENCOUNTER 2024-03-30 10:51 | Outpatient (CLI) | payer OTHER, SELFPAY | END 2024-03-30 23:59 | disposition home or self-care (01) | LOC: LAB.DROPOF 04-01 10:51 | PROVIDERS: PCP Nurse Practitioner; Visit Provider Nurse Practitioner | DX: R10.84 Generalized abdominal pain (principal) | CPT/HCPCS: 87086 ==

== ENCOUNTER 2024-04-20 09:48 | Outpatient (CLI) | payer OTHER, SELFPAY | END 2024-04-20 23:59 | disposition home or self-care (01) | LOC: LAB.DROPOF 04-21 09:23 | PROVIDERS: PCP Nurse Practitioner; Visit Provider Nurse Practitioner | DX: R30.0 Dysuria (principal) | CPT/HCPCS: 87086; 87088; 87186 ==

== ENCOUNTER 2024-08-17 10:21 | Outpatient (CLI) | payer OTHER, SELFPAY | END 2024-08-17 23:59 | disposition home or self-care (01) | LOC: LAB.DROPOF 08-18 10:21 | PROVIDERS: PCP Nurse Practitioner; Visit Provider Nurse Practitioner | DX: R10.84 Generalized abdominal pain (principal) | CPT/HCPCS: 87086 ==

== ENCOUNTER 2025-01-07 14:25 | Outpatient (CLI) | payer MEDICARE, SELFPAY ==
[2025-01-07 18:57] LABS: Basophils # 0.1 K/mm3 (0-0.2); Eosinophils # 0.1 K/mm3 (0.0-0.4); Eosinophils % 1.4 % (0.1-12.0); Hematocrit 37.3 % (37.0-47.0); Hemoglobin 12.3 g/dL (12.2-16.2); Lymphocytes # 2.2 K/mm3 (0.7-4.5); Lymphocytes % 37.2 % (10-50); Mean Corpuscular Hemoglobin 30.8 pg (27.0-31.2); Mean Corpuscular Volume 93.5 fl (81-99); Mean Platelet Volume 9.2 fl (7.4-10.4); Monocytes # 0.4 K/mm3 (0.1-1.0); Monocytes % 6.1 % (1.7-9.3); Neutrophils # 3.2 K/mm3 (1.8-7.8); Neutrophils % 54.1 % (37.0-80.0); Platelet Count 313 K/mm3 (142-424); Red Blood Count 3.99 M/mm3 (4.20-5.40); Red Cell Distribution Width 12.2 % (11.5-17.5); White Blood Count 5.9 K/mm3 (4.8-10.8)
[2025-01-07 19:26] LABS: Alanine Aminotransferase 19 U/L (12-78); Albumin Level 4.5 g/dl (3.5-5.0); Albumin/Globulin Ratio 1.7 (1.1-1.8); Alkaline Phosphatase 83 U/L (38-126); Anion Gap 10.4 mEq/L (5-15); Aspartate Amino Transferase 29 U/L (14-36); Bilirubin,Total 1.3 mg/dl (0.2-1.3); Blood Urea Nitrogen 12 mg/dl (7-17); Calcium 9.6 mg/dl (8.4-10.2); Carbon Dioxide 27 mmol/L (22.0-30.0); Chloride 105 mmol/L (98-107); Chol/HDL Ratio 1.7 (1-3.5); Cholesterol 176 mg/dl (140-200); Estimated Glomerular Filt Rate 100 ml/min (>60); GFR (African American) 121 ML/MIN (>60); Globulin 2.6 g/dL (1.3-3.2); Glucose 83 mg/dl (74-100); HDL Cholesterol 105 mg/dl (40-60); Potassium 4.4 mmoL/L (3.5-5.1); Sodium 138 mmol/L (136-145); Total Protein,Serum 7.1 g/dl (6.3-8.2); Triglycerides 84 mg/dl (30-150); VLDL Cholesterol 17 mg/dL (0-40)
[2025-01-07 20:28] LABS: HIV Combo NEGATIVE (Negative)
[2025-01-07 20:32] LABS: Hepatitis C Ab Qual. W/ RFX NEGATIVE (Negative)
[2025-01-07 20:43] LABS: 25-OH Vitamin D, Total 32.3 ng/mL (30-100)
[2025-01-07 20:47] LABS: Direct LDL Cholesterol 56.37 mg/dL (100-129)
[2025-01-07 21:08] LABS: Thyroid Stimulating Hormone 0.93 uIU/mL (0.465-4.68)
[2025-01-07 21:27] LABS: Vitamin B12 364 pg/mL (239-931)
[2025-01-07 22:00] LABS: Hemoglobin A1C 5.2 % (4.0-6.0)
== END 2025-01-07 23:59 | disposition home or self-care (01) ==
LOC: LAB.DROPOF 01-08 10:14
PROVIDERS: PCP Nurse Practitioner; Visit Provider Nurse Practitioner
DX: Z98.84 Bariatric surgery status (principal); F41.9 Anxiety disorder, unspecified; E55.9 Vitamin D deficiency, unspecified; E66.9 Obesity, unspecified; Z13.0 Encounter for screening for diseases of the blood and blood-forming organs and certain disorders involving the immune mechanism
CPT/HCPCS: 80053; 80061; 82306; 82607; 83036; 84443; 85025; 86803; 87389

== ENCOUNTER 2025-01-20 08:20 | Outpatient (CLI) | payer MEDICARE, SELFPAY ==
--- NOTE | 2025-01-20 08:30 | MM_ITS ---
PROCEDURE INFORMATION: Exam: MG Bilateral Screening 3D Mammography Exam date and time: 01/20/2025 8:27 AM Age: 64 years old Clinical indication: Screening examination. Paternal aunt had breast cancer. TECHNIQUE: Imaging protocol: Bilateral Screening tomosynthesis and 2D mammography including computer-aided detection (CAD) when performed. COMPARISON: 1. MG MM DIG SCREENING MAMM BI W/CAD 01/06/2024 4:04 PM 2. MG MM DIG MAMM BI DX W/CAD 12/17/2022 1:58 PM 3. MG MM DIG MAMM DX UNILAT RT CAD 06/13/2022 2:06 PM 4. MG MM DIG MAMM BI DX W/CAD 12/12/2021 1:59 PM FINDINGS: MAMMOGRAPHY: Breast composition: The breasts are almost entirely fatty. Mass: No suspicious mass. Architectural distortion: None. Calcifications: No suspicious calcifications. Asymmetric density: None. Skin thickening: None. Axillary adenopathy: None. IMPRESSION: No mammographic evidence of malignancy. Annual screening is recommended unless otherwise clinically indicated. ASSESSMENT: BI-RADS Category 1: Negative.
--- NOTE | 2025-01-20 08:30 | XR_ITS ---
FINAL REPORT TECHNIQUE: Bone densitometry calculations of the lumbar spine and left hip were obtained. CLINICAL HISTORY: screening, postmenopausal FINDINGS: Using L1-4, the bone mineral density of the spine is 1.011 g/cm2, corresponding to T-score of -0.3 and a Z score of -1.4. This is within the range of normal limits. Using the left hip, the bone mineral density of the total hip is 0.753 g/cm2, corresponding to a T-score of -1.5 and a Z-score of 0.3. This is within the range of osteopenia. FRAX 10 year fracture risk is 1.4% for a hip fracture and 14% for a major osteoporotic fracture. NOTE: T-score: Standard deviation compared with peak bone mass of young adult mean. *Following the recommendations of the International Society of Bone densitometry, classification of hip BMD is based on the lower of two T-scores; total hip or femoral neck. IMPRESSION: 1. Bone mineral density of the lumbar spine within the range of normal limits. 2. Bone mineral density of the left femoral neck within the range of osteopenia. Reviewed, Interpreted and Dictated by Ethel Duran MD Transcribed by Samina Sr Authenticated and [facility]
== END 2025-01-20 23:59 | disposition home or self-care (01) ==
LOC: RAD 08:20
PROVIDERS: PCP Nurse Practitioner; Visit Provider Nurse Practitioner
DX: Z12.31 Encounter for screening mammogram for malignant neoplasm of breast (principal); Z78.0 Asymptomatic menopausal state
CPT/HCPCS: 77063; 77067; 77080